=== PATIENT | male | born 1965 | race Caucasian/White ===

== ENCOUNTER 2018-04-01 00:03 | Emergency (ER) | payer OTHER ==
--- NOTE | 2018-04-01 00:56 | ED ---
Chest Pain HPI - General Chief Complaint: Chest Pain Stated Complaint: Chest Pain Time Seen by Provider: 04/01/18 00:42 Source: patient Mode of arrival: ambulatory Limitations: no limitations - History of Present Illness MD Complaint: chest pain Onset/Timin -: days(s) Onset: other (After coughing) Pain Location: left chest Pain Radiation: none Severity: moderate Quality: aching Consistency: constant Improves With: nothing Worsens With: palpation, movement, other (Coughing) Context: recent illness Other Symptoms: cough Treatments Prior to Arrival: none - Related Data Previous Rx's Medication Instructions Recorded Ibuprofen [Motrin] 600 mg PO Q8HR PRN #20 tab 04/01/18 Allergies Allergy/AdvReac Type Severity Reaction Status Date / Time No Known Allergies Allergy Verified 04/01/18 00:09 Review of Systems ROS Statement: Those systems with pertinent positive or pertinent negative responses have been documented in the HPI. ROS Other: All systems not noted in ROS Statement are negative. Constitutional: Denies: fever, chills Respiratory: Reports: cough. Denies: dyspnea, wheezes, hemoptysis Cardiovascular: Reports: as per HPI, chest pain. Denies: palpitations, dyspnea on exertion, orthopnea, edema, syncope Gastrointestinal: Denies: abdominal pain, vomiting, diarrhea Genitourinary: Denies: dysuria, hematuria Musculoskeletal: Denies: back pain Skin: Denies: rash Neurological: Denies: headache EKG Findings - EKG Results: EKG: interpreted by FELY, sinus rhythm (Rate approximate 93 b.p.m.), normal ST/T - Blocks, Boomer, Hypertrophy, ST Abn: AV and intraventricular conduction: left anterior fascicular block Past Medical History Past Medical History: Diabetes Mellitus, Hyperlipidemia Additional Past Medical History / Comment(s): Fatty liver disease, Chronic back pain, pulmonary sarcoidosis History of Any Multi-Drug Resistant Organisms: None Reported Past Surgical History: Hernia Repair Past Psychological History: Depression Smoking Status: Never smoker Past Alcohol Use History: Rare Past Drug Use History: None Reported General Exam Limitations: no limitations General appearance: alert, in no apparent distress, obese Head exam: Present: atraumatic, normocephalic Eye exam: Present: normal appearance. Absent: scleral icterus, conjunctival injection Respiratory exam: Present: normal lung sounds bilaterally, chest wall tenderness. Absent: respiratory distress, wheezes, rales, rhonchi, stridor, accessory muscle use, decreased breath sounds, prolonged expiratory Cardiovascular Exam: Present: regular rate, normal rhythm, normal heart sounds. Absent: systolic murmur, diastolic murmur, rubs, gallop GI/Abdominal exam: Present: soft. Absent: distended, tenderness, guarding, rebound, rigid, mass, hernia Extremities exam: Present: normal inspection, normal capillary refill. Absent: pedal edema, calf tenderness Back exam: Present: normal inspection. Absent: CVA tenderness (R), CVA tenderness (L) Neurological exam: Present: alert Skin exam: Present: warm, dry, intact, normal color. Absent: rash Course Vital Signs 04/01/18 04/01/18 00:04 01:10 Temperature 98.2 F Pulse Rate 103 H Respiratory 18 22 Rate Blood Pressure 122/72 O2 Sat by Pulse 97 Oximetry Disposition Clinical Impression: Chest wall pain Disposition: HOME SELF-CARE Condition: Good Instructions: Chest Pain (ED) Prescriptions: Ibuprofen [Motrin] 600 mg PO Q8HR PRN #20 tab PRN Reason: Pain Is patient prescribed a controlled substance at d/c from ED?: No Referrals: Edwin Chicas MD [Primary Care Provider] - 1-2 days
[2018-04-01 01:22] LABS: Basophils # (A) 0.1 k/uL (0-0.2); Basophils % (A) 1 %; Eosinophils # (A) 0.3 k/uL (0-0.7); Eosinophils % (A) 4 %; HCT 41.1 % (39.0-53.0); HGB 13.9 gm/dL (13.0-17.5); Lymphocytes # (A) 1.3 k/uL (1.0-4.8); Lymphocytes % (A) 18 %; MCH 30.2 pg (25.0-35.0); MCHC 33.9 g/dL (31.0-37.0); MCV 89.2 fL (80.0-100.0); Mean Platelet Volume 7.9; Monocytes # (A) 0.6 k/uL (0-1.0); Monocytes % (A) 9 %; Neutrophils # (A) 4.7 k/uL (1.3-7.7); Neutrophils % (A) 66 %; Platelet Count 192 k/uL (150-450); RBC 4.61 m/uL (4.30-5.90); RDW 13.6 % (11.5-15.5); WBC 7.2 k/uL (3.8-10.6)
--- NOTE | 2018-04-01 01:26 | XR ---
EXAMINATION TYPE: XR chest 1V portable DATE OF EXAM: 04/01/2018 COMPARISON: NONE HISTORY: Chest pain TECHNIQUE: Single frontal view of the chest is obtained. FINDINGS: Heart and mediastinum are normal. Lungs are clear. Diaphragm is normal. There are chest le ads. Bony thorax appears normal. IMPRESSION: Normal chest
[2018-04-01 01:30] LABS: Partial Thromboplastin Time 22.3 sec (22.0-30.0)
[2018-04-01 01:48] LABS: ALT 26 U/L (21-72); AST 19 U/L (17-59); Albumin 3.9 g/dL (3.5-5.0); Alkaline Phosphatase 95 U/L (38-126); Anion Gap 10 mmol/L; Blood Urea Nitrogen 22 mg/dL (9-20); Calcium 9.7 mg/dL (8.4-10.2); Carbon Dioxide 27 mmol/L (22-30); Chloride 98 mmol/L (98-107); Glucose 329 mg/dL (74-99); Magnesium 1.6 mg/dL (1.6-2.3); Potassium 4.4 mmol/L (3.5-5.1); Sodium 135 mmol/L (137-145); Total Bilirubin 0.7 mg/dL (0.2-1.3); Total Protein 6.9 g/dL (6.3-8.2)
[2018-04-01 02:01] LABS: Creatine Kinase MB 2.4 ng/mL (0.0-2.4); Troponin I 0.021 ng/mL (0.000-0.034)
[2018-04-01] MEDS ORDERED: MORPHINE SULFATE 4 MG/ML SYRINGE IVP STA (02:18)
[2018-04-01 02:51] VITALS: BP 135/84; PULSE 93; RESP 20; TEMP 98.1
== END 2018-04-01 02:53 | disposition home or self-care (01) ==
LOC: EC 00:03
DX: R07.89 Other chest pain (principal); R05 Cough
CPT/HCPCS: 36415; 93005; 80053; 82550; 82553; 83735; 84484; 85025; 85610; 85730; 71045; 99285; 96374; J2270

== ENCOUNTER → 2018-04-04 | Outpatient (CLI) | payer OTHER ==
[2018-04-04 08:22] LABS: Basophils # (A) 0.1 k/uL (0-0.2); Basophils % (A) 1 %; Eosinophils # (A) 0.3 k/uL (0-0.7); Eosinophils % (A) 7 %; HCT 40.1 % (39.0-53.0); HGB 13.6 gm/dL (13.0-17.5); Lymphocytes # (A) 0.8 k/uL (1.0-4.8); Lymphocytes % (A) 17 %; MCH 30.2 pg (25.0-35.0); MCV 88.8 fL (80.0-100.0); Mean Platelet Volume 6.9; Monocytes # (A) 0.4 k/uL (0-1.0); Monocytes % (A) 8 %; Neutrophils % (A) 64 %; Platelet Count 187 k/uL (150-450); RBC 4.51 m/uL (4.30-5.90); RDW 13.5 % (11.5-15.5); WBC 4.8 k/uL (3.8-10.6)
[2018-04-04 09:05] LABS: ALT 33 U/L (21-72); AST 19 U/L (17-59); Albumin 3.7 g/dL (3.5-5.0); Alkaline Phosphatase 98 U/L (38-126); Anion Gap 6 mmol/L; Blood Urea Nitrogen 21 mg/dL (9-20); Calcium 9.3 mg/dL (8.4-10.2); Carbon Dioxide 30 mmol/L (22-30); Chloride 101 mmol/L (98-107); Cholesterol 138 mg/dL (<200); Glucose 218 mg/dL (74-99); HDL Cholesterol 46 mg/dL (40-60); LDL Cholesterol,Calculated 70 mg/dL (0-99); Potassium 4.7 mmol/L (3.5-5.1); Sodium 137 mmol/L (137-145); Total Bilirubin 0.6 mg/dL (0.2-1.3); Total Protein 6.7 g/dL (6.3-8.2); Triglycerides 109 mg/dL (<150)
[2018-04-04 09:34] LABS: Prostate Specific Antigen 0.53 ng/mL (0.00-4.00)
[2018-04-04 11:22] LABS: Erythrocyte Sedimentation Rate 32 mm/hr (0-15)
[2018-04-04 17:07] LABS: Immunoglobulin E 9.91 IU/mL (0.00-114.00)
[2018-04-04 19:04] LABS: Hemoglobin A1C 9.9 % (4.0-6.0)
[2018-04-04 19:34] LABS: Cyclic Citrullinated Pep IgG POSITIVE (NEGATIVE)
== END ==
LOC: LABWHC1 07:07
PROVIDERS: ATTEND Family Medicine
DX: I10 Essential (primary) hypertension (principal); E11.9 Type 2 diabetes mellitus without complications; Z79.899 Other long term (current) drug therapy
CPT/HCPCS: 36415; 80053; 80061; 82043; 82570; 82785; 83036; 84153; 84443; 85025; 85652; 86038; 86200

== ENCOUNTER 2018-06-25 13:20 | Observation (INO) | payer OTHER ==
[2018-06-25 14:07] LABS: Basophils % (A) 1 %; Eosinophils # (A) 0.2 k/uL (0-0.7); Eosinophils % (A) 4 %; HCT 44.2 % (39.0-53.0); HGB 14.8 gm/dL (13.0-17.5); Lymphocytes # (A) 0.5 k/uL (1.0-4.8); Lymphocytes % (A) 12 %; MCH 30.4 pg (25.0-35.0); MCHC 33.6 g/dL (31.0-37.0); MCV 90.5 fL (80.0-100.0); Mean Platelet Volume 7.6; Monocytes # (A) 0.3 k/uL (0-1.0); Monocytes % (A) 7 %; Neutrophils # (A) 3.3 k/uL (1.3-7.7); Neutrophils % (A) 74 %; Platelet Count 173 k/uL (150-450); RBC 4.89 m/uL (4.30-5.90); RDW 13.4 % (11.5-15.5); WBC 4.5 k/uL (3.8-10.6)
--- NOTE | 2018-06-25 14:14 | XR ---
EXAMINATION TYPE: XR chest 2V DATE OF EXAM: 06/25/2018 HISTORY: Chest Pain. REFERENCE: Previous study dated 04/01/2018. FINDINGS: There is minimal atelectasis at the left lung base. Lungs otherwise clear. Pleural space ar e clear. The heart is not enlarged. IMPRESSION: MINIMAL ATELECTASIS, LEFT LUNG BASE.
[2018-06-25 14:18] LABS: ALT 38 U/L (21-72); AST 25 U/L (17-59); Albumin 3.9 g/dL (3.5-5.0); Alkaline Phosphatase 119 U/L (38-126); Anion Gap 10 mmol/L; Blood Urea Nitrogen 20 mg/dL (9-20); Calcium 9.2 mg/dL (8.4-10.2); Carbon Dioxide 29 mmol/L (22-30); Chloride 93 mmol/L (98-107); Lipase 198 U/L (23-300); Magnesium 1.6 mg/dL (1.6-2.3); Potassium 4.9 mmol/L (3.5-5.1); Sodium 132 mmol/L (137-145); Total Bilirubin 0.9 mg/dL (0.2-1.3); Total Protein 7.1 g/dL (6.3-8.2)
[2018-06-25 14:19] LABS: D-Dimer 0.31 mg/L FEU (<0.60); Partial Thromboplastin Time 22.7 sec (22.0-30.0); Prothrombin Time 10.3 sec (9.0-12.0)
[2018-06-25 14:30] LABS: Creatine Kinase 106 U/L (55-170)
[2018-06-25 14:41] LABS: Glucose 545 mg/dL (74-99)
[2018-06-25 14:44] LABS: Creatine Kinase MB 1.8 ng/mL (0.0-2.4); Troponin I <0.012 ng/mL (0.000-0.034)
[2018-06-25] MEDS ORDERED: INSULIN ASPART 100 UNIT/ML 1 ML 10 ML VIAL SQ ONE (14:51)
[2018-06-25] MEDS ORDERED: SODIUM CHLORIDE 0.9% 500 ML 500 ML IV ONE (14:54)
[2018-06-25] MEDS ORDERED: SODIUM CHLORIDE 0.9% 1,000 ML IV ONE (14:54)
[2018-06-25] MEDS ORDERED: NITROGLYCERIN SL TABS 0.4 MG TAB SUBLINGUAL PRN (14:55)
[2018-06-25] MEDS ORDERED: HEPARIN SODIUM,PORCINE 5,000 UNIT/ML 1 ML VIAL IV ONE ×2 (14:55→22:19)
[2018-06-25] MEDS ORDERED: ASPIRIN 81 MG PO STA (14:55)
--- NOTE | 2018-06-25 14:55 | ED ---
Chest Pain HPI - General Chief Complaint: Chest Pain Stated Complaint: Chest, sob Time Seen by Provider: 06/25/18 13:36 Source: patient, RN notes reviewed Mode of arrival: wheelchair Limitations: no limitations - History of Present Illness Initial Comments: This a 52-year-old male presents emergency Department chief complaint of chest pain. Patient states she's had some ongoing chest pain but worsened today. Patient states also felt short of breath. Patient states he has a history of sarcoidosis. Patient states that this was confirmed by biopsy. Patient states that he has a history of hyperlipidemia, diabetes uncontrolled. Patient denies any fever or chills no URI symptoms. Patient states the pain is primarily left- sided also right-sided. Patient denies any nausea vomiting. - Related Data Home Medications Medication Instructions Recorded Confirmed Atorvastatin [Lipitor] 20 mg PO HS 06/25/18 06/25/18 Gabapentin [Neurontin] 300 mg PO TID 06/25/18 06/25/18 Insulin NPH Hum/Reg Insulin Hm 120 unit SQ BID 06/25/18 06/25/18 [Novolin 70-30 100 Unit/ml Vial] Pioglitazone [Actos] 45 mg PO DAILY 06/25/18 06/25/18 Trazodone (Unknown Dose) 1 tab PO HS 06/25/18 06/25/18 metFORMIN HCL 1,000 mg PO BID 06/25/18 06/25/18 Allergies Allergy/AdvReac Type Severity Reaction Status Date / Time tramadol Allergy Unknown Verified 06/25/18 13:48 Review of Systems ROS Statement: Those systems with pertinent positive or pertinent negative responses have been documented in the HPI. ROS Other: All systems not noted in ROS Statement are negative. EKG Findings - EKG Comments: EKG Findings:: EKG performed at 13:30 normal sinus rhythm with a rate of 88 VT 154 QRS 84 QT/QTC 374/452 Past Medical History Past Medical History: Diabetes Mellitus, Hyperlipidemia Additional Past Medical History / Comment(s): Fatty liver disease, Chronic back pain, pulmonary sarcoidosis History of Any Multi-Drug Resistant Organisms: None Reported Past Surgical History: Hernia Repair Past Psychological History: Depression Smoking Status: Never smoker Past Alcohol Use History: None Reported Past Drug Use History: None Reported General Exam Limitations: no limitations General appearance: alert, in no apparent distress Head exam: Present: atraumatic, normocephalic, normal inspection ENT exam: Present: normal exam, normal oropharynx, mucous membranes moist Neck exam: Present: normal inspection. Absent: tenderness, meningismus, lymphadenopathy Respiratory exam: Present: normal lung sounds bilaterally. Absent: respiratory distress, wheezes, rales, rhonchi, stridor Cardiovascular Exam: Present: regular rate, normal rhythm, normal heart sounds. Absent: systolic murmur, diastolic murmur, rubs, gallop, clicks GI/Abdominal exam: Present: soft, normal bowel sounds. Absent: distended, tenderness, guarding, rebound, rigid Course Vital Signs 06/25/18 13:25 Temperature 97.5 F L Pulse Rate 97 Respiratory 18 Rate Blood Pressure 120/76 O2 Sat by Pulse 98 Oximetry Chest Pain MDM - MDM 52-year-old male presented for chest pain patient has no acute changes an EKG lab work does reveal hyperglycemia uncontrolled diabetes. Patient be admitted for cardiology evaluation and repeat troponins, heparin, stabilization of blood sugar. Disposition Clinical Impression: Chest pain, Hyperglycemia, Uncontrolled diabetes mellitus Disposition: ADMITTED IP TO THIS HOSP Condition: Fair Referrals: Edwin Chicas MD [Primary Care Provider] - 1-2 days
[2018-06-25] MEDS ORDERED: HEPARIN SOD,PORK IN 0.45% NACL 25,000 UNIT in 0.45% NACL 1 250ML.BAG IV SCH (15:00)
[2018-06-25 17:04] LABS: Glucose,Whole Blood 396 mg/dL (75-99)
[2018-06-25] MEDS: INSULIN ASPART 100 UNIT/ML 1 ML 10 ML VIAL SQ SCH ×2 (18:00→21:43)
[2018-06-25 20:21] LABS: Glucose,Whole Blood 305 mg/dL (75-99)
[2018-06-25] MEDS: INSULN ASP PRT/INSULIN ASPART 100 UNIT/ML 10 ML VIAL SQ SCH (20:44)
[2018-06-25] MEDS: GABAPENTIN 300 MG CAP PO SCH (20:44)
[2018-06-25] MEDS: metFORMIN 500 MG TAB PO SCH (20:44)
[2018-06-25] MEDS ORDERED: ATORVASTATIN 20 MG TAB PO SCH (21:00)
[2018-06-25 21:05] LABS: Creatine Kinase 107 U/L (55-170)
[2018-06-25 21:20] LABS: Creatine Kinase MB 1.7 ng/mL (0.0-2.4); Troponin I <0.012 ng/mL (0.000-0.034)
[2018-06-25 21:27] LABS: Glucose,Whole Blood 383 mg/dL (75-99)
[2018-06-25] MEDS ORDERED: traZODone HCL 100 MG TAB PO SCH (22:00)
[2018-06-26 01:43] LABS: Cholesterol 154 mg/dL (<200); Creatine Kinase 97 U/L (55-170); HDL Cholesterol 39 mg/dL (40-60); LDL Cholesterol,Calculated 70 mg/dL (0-99); Triglycerides 226 mg/dL (<150)
[2018-06-26 01:56] LABS: Creatine Kinase MB 1.4 ng/mL (0.0-2.4); Troponin I <0.012 ng/mL (0.000-0.034)
[2018-06-26 02:22] LABS: Glucose,Whole Blood 53 mg/dL (75-99)
[2018-06-26 02:56] LABS: Glucose,Whole Blood 68 mg/dL (75-99)
[2018-06-26 02:56] LABS: Glucose,Whole Blood 56 mg/dL (75-99)
[2018-06-26 03:03] LABS: Glucose,Whole Blood 101 mg/dL (75-99)
[2018-06-26] MEDS ORDERED: HEPARIN SODIUM,PORCINE 5,000 UNIT/ML 1 ML VIAL IV ONE (04:25)
[2018-06-26 06:44] LABS: Glucose,Whole Blood 240 mg/dL (75-99)
[2018-06-26 07:27] VITALS: RESP 18
[2018-06-26] MEDS ORDERED: ACETAMINOPHEN TAB 325 MG TAB PO PRN (08:26)
[2018-06-26] MEDS: INSULIN ASPART 100 UNIT/ML 1 ML 10 ML VIAL SQ SCH ×3 (08:54→17:00)
[2018-06-26] MEDS ORDERED: ASPIRIN 325 MG TAB PO SCH (09:00)
[2018-06-26] MEDS ORDERED: PIOGLITAZONE 45 MG TAB PO SCH (09:00)
[2018-06-26] MEDS ORDERED: REGADENOSON 0.4 MG/5 ML SYRINGE IV ONE (10:18)
[2018-06-26] MEDS ORDERED: CAFFEINE CITRATE 60 MG/3 ML VIAL IV PRN (10:18)
--- NOTE | 2018-06-26 11:37 | P.CRDCN ---
History of Present Illness History of present illness: This is a pleasant 52-year-old male past medical history significant for sarcoidosis, diabetes mellitus and dyslipidemia. He denies history of coronary artery disease, hypertension or arrhythmia. He does not follow with a building architect. He states he has recently moved here from [place] and has had a stress test approximately 4-5 years ago down there. We have been asked to see him in consultation for chest pain. He states he has a tight pain in the chest that circles around his entire anterior chest wall and then wraps around to his back at times. He has been having this pain for many years but it seems to be getting worse recently. He gets mildly short of breath with this discomfort as well. He denies dizziness, palpitations, nausea, vomiting or diaphoresis. He denies PND or orthopnea. He denies fever, chills or cough recently. EKG reveals sinus mechanism with left anterior fascicular block. No acute ST or T wave abnormalities noted. Chest x-ray negative for an acute cardiopulmonary process with evidence of minimal atelectasis at the left lung base. Laboratory data reviewed, hemoglobin 14.8, platelets 173, WBC 4.5, d-dimer 0.3, sodium 132, potassium 4.9, magnesium 1.6, creatinine 0.95, glucose on admission 545, cardiac enzymes negative 3, LDL 70, HDL 39, triglycerides 226. Current cardiac medications include atorvastatin 20 mg daily. At the time of my exam: CONSTITUTIONAL: Denies fever. Denies chills. EYES: Denies blurred vision. Denies vision changes. Denies eye pain. EARS, NOSE, MOUTH & THROAT: Denies headache. Denies sore throat. Denies ear pain. CARDIOVASCULAR: Denies chest pain. Denies shortness of breath. Denies orthopnea. Denies PND. Denies palpitations. RESPIRATORY: Denies cough. GASTROINTESTINAL: Denies abdominal pain. Denies diarrhea. Denies constipation. Denies nausea. Denies vomiting. MUSCULOSKELETAL: Denies myalgias. INTEGUMENTARY: Denies pruitis. Denies rash. NEUROLOGIC: Denies numbness. Denies tingling. Denies weakness. PSYCHIATRIC: Denies anxiety. Denies depression. ENDOCRINE: Denies fatigue. Denies weight change. Denies polydipsia. Denies polyurina. GENITOURINARY: Denies burning, hematuria or urgency with micturation. HEMATOLOGIC: Denies history of anemia. Denies bleeding. Blood pressure 122/70 heart rate 70 afebrile maintaining oxygen saturation on room air GENERAL: This is a 52-year-old male in no apparent distress at the time of my examination. Obese. HEENT: Head is atraumatic, normocephalic. Pupils are equal, round. Sclerae anicteric. Conjunctivae are clear. Mucous membranes of the mouth are moist. Neck is supple. There is no jugular venous distention. No carotid bruit is heard. LUNGS: Clear to auscultation no wheezes, rales or rhonchi. No chest wall tenderness is noted on palpation or with deep breathing. HEART: Regular rate and rhythm without murmurs, rubs or gallops. S1 and S2 heard. ABDOMEN: Soft, nontender. Bowel sounds are heard. No organomegaly noted. EXTREMITIES: No evidence of peripheral edema and no calf tenderness noted. VASCULAR: Radial and dorsalis pedis pulses palpated, no evidence of clubbing. NEUROLOGIC: Patient is awake, alert and oriented x3. ASSESSMENT Chest pain, atypical for angina. An acute coronary event has been ruled out with no EKG evidence of ischemia and negative cardiac enzymes. Diabetes mellitus, uncontrolled Dyslipidemia Hypertriglyceridemia History of sarcoidosis Obesity, BMI 37 PLAN An acute coronary event has been ruled out with no EKG evidence of ischemia and negative cardiac enzymes. Obtain 2D echocardiogram and doppler study to assess cardiac structure and function. Perform Lexiscan stress test to assess for reversible ischemia. Increase atorvastatin to 40 mg daily secondary to his history of diabetes. Will watch his triglycerides and may make some adjustments as an outpatient. If stress test is normal he can be discharged and follow up with Dr. Kate in 2 -3 weeks. Thank you kindly for this consultation. Nurse Practitioner note has been reviewed, I agree with a documented findings and plan of care. Patient was seen and examined. Past Medical History Past Medical History: Diabetes Mellitus, Hyperlipidemia Additional Past Medical History / Comment(s): Fatty liver disease, Chronic back pain, pulmonary sarcoidosis History of Any Multi-Drug Resistant Organisms: None Reported Past Surgical History: Hernia Repair Past Anesthesia/Blood Transfusion Reactions: No Reported Reaction Past Psychological History: Depression Smoking Status: Never smoker Past Alcohol Use History: None Reported Past Drug Use History: None Reported Medications and Allergies Home Medications Medication Instructions Recorded Confirmed Type Atorvastatin [Lipitor] 20 mg PO HS 06/25/18 06/25/18 History Gabapentin [Neurontin] 300 mg PO TID 06/25/18 06/25/18 History Insulin NPH Hum/Reg Insulin Hm 120 unit SQ BID 06/25/18 06/25/18 History [Novolin 70-30 100 Unit/ml Vial] Pioglitazone [Actos] 45 mg PO DAILY 06/25/18 06/25/18 History metFORMIN HCL 1,000 mg PO BID 06/25/18 06/25/18 History traZODone HCL 200 mg PO HS MDD 200 06/25/18 06/26/18 History Allergies Allergy/AdvReac Type Severity Reaction Status Date / Time tramadol Allergy Unknown Verified 06/25/18 13:48 Physical Exam Vitals: Vital Signs Temp Pulse Pulse Resp BP BP Pulse Ox 06/26/18 08:00 73 18 06/26/18 07:15 98.2 F 73 18 122/78 96 06/26/18 04:00 97.9 F 71 16 100/63 96 06/26/18 03:47 18 06/25/18 23:56 79 17 06/25/18 23:46 97.7 F 79 15 107/66 97 06/25/18 20:00 76 16 06/25/18 18:59 97.9 F 76 15 118/66 96 06/25/18 18:06 102/72 06/25/18 17:05 97.3 F L 93 18 142/87 97 06/25/18 16:59 97 F L 76 18 129/80 95 06/25/18 16:00 93 18 06/25/18 15:39 99 18 126/65 96 06/25/18 13:25 97.5 F L 97 18 120/76 98 Intake and Output 06/25/18 06/26/18 06/26/18 22:59 06:59 14:59 Intake Total 317.5 336.123 Balance 317.5 336.123 Intake: Intake, IV Titration 67.5 86.123 Amount Heparin Sod,Pork in 0.45% 67.5 86.123 NaCl 25,000 unit In 0.45 % NaCl 1 250ml.bag @ 7. 349 UNITS/KG/HR 10 mls/hr IV .Q24H [facility] Rx#: [id number] Oral 250 250 Other: Voiding Method Toilet Toilet Toilet # Voids 3 Weight 130.4 kg Results 06/25/18 13:44 06/25/18 13:44 Cardiac Enzymes 06/25/18 06/25/18 06/25/18 Range/Units 13:44 13:44 20:28 AST 25 (17-59) U/L CK-MB (CK-2) 1.8 1.7 (0.0-2.4) ng/mL Troponin I <0.012 <0.012 (0.000-0.034) ng/mL 06/26/18 Range/Units 01:09 AST (17-59) U/L CK-MB (CK-2) 1.4 (0.0-2.4) ng/mL Troponin I <0.012 (0.000-0.034) ng/mL Coagulation 06/25/18 06/25/18 06/26/18 Range/Units 13:44 20:28 03:16 PT 10.3 (9.0-12.0) sec APTT 22.7 28.7 38.1 H (22.0-30.0) sec Lipids 06/26/18 Range/Units 01:09 Triglycerides 226 H (<150) mg/dL Cholesterol 154 (<200) mg/dL HDL Cholesterol 39 L (40-60) mg/dL CBC 06/25/18 Range/Units 13:44 WBC 4.5 (3.8-10.6) k/uL RBC 4.89 (4.30-5.90) m/uL Hgb 14.8 (13.0-17.5) gm/dL Hct 44.2 (39.0-53.0) % Plt Count 173 (150-450) k/uL Comprehensive Metabolic Panel 06/25/18 Range/Units 13:44 Sodium 132 L (137-145) mmol/L Potassium 4.9 (3.5-5.1) mmol/L Chloride 93 L (98-107) mmol/L Carbon Dioxide 29 (22-30) mmol/L BUN 20 (9-20) mg/dL Creatinine 0.95 (0.66-1.25) mg/dL Glucose 545 H* (74-99) mg/dL Calcium 9.2 (8.4-10.2) mg/dL AST 25 (17-59) U/L ALT 38 (21-72) U/L Alkaline Phosphatase 119 (38-126) U/L Total Protein 7.1 (6.3-8.2) g/dL Albumin 3.9 (3.5-5.0) g/dL Current Medications Generic Name Dose Route Start Last Admin Trade Name Freq PRN Reason Stop Dose Admin Acetaminophen 650 mg 06/26/18 08:26 Tylenol Tab PO Q4HR PRN Fever and/ or Pain Aspirin 325 mg 06/26/18 09:00 Aspirin PO DAILY ELENITA Atorvastatin Calcium 40 mg 06/26/18 21:00 Lipitor PO HS ELENITA Gabapentin 300 mg 06/25/18 22:00 06/25/18 20:44 Neurontin PO 300 mg TID ELENITA Administration Insulin Aspart 0 unit 06/25/18 17:30 06/26/18 08:54 Novolog SQ 5 unit ACHS ELENITA Administration Protocol Insulin Aspart 120 unit 06/25/18 19:00 06/25/18 20:44 Novolog Mix 70-30 Vial SQ 120 unit AC-BID ELENITA Administration Metformin HCl 1,000 mg 06/25/18 21:00 06/25/18 20:44 Glucophage PO 1,000 mg BID ELENITA Administration Nitroglycerin 0.4 mg 06/25/18 14:55 06/25/18 18:06 Nitrostat SUBLINGUAL 0.4 mg Q5M PRN Administration Chest Pain Pioglitazone HCl 45 mg 06/26/18 09:00 Actos PO DAILY ELENITA Trazodone HCl 200 mg 06/25/18 22:00 06/25/18 22:21 Desyrel PO 200 mg HS ELENITA Administration Intake and Output 06/25/18 06/26/18 06/26/18 22:59 06:59 14:59 Intake Total 317.5 336.123 Balance 317.5 336.123 Intake: Intake, IV Titration 67.5 86.123 Amount Heparin Sod,Pork in 0.45% 67.5 86.123 NaCl 25,000 unit In 0.45 % NaCl 1 250ml.bag @ 7. 349 UNITS/KG/HR 10 mls/hr IV .Q24H [facility] Rx#: [id number] Oral 250 250 Other: Voiding Method Toilet Toilet Toilet # Voids 3 Weight 130.4 kg 06/25/18 13:44 06/25/18 13:44
[2018-06-26 12:52] LABS: Glucose,Whole Blood 245 mg/dL (75-99)
[2018-06-26] MEDS: metFORMIN 500 MG TAB PO SCH (12:55)
[2018-06-26] MEDS: GABAPENTIN 300 MG CAP PO SCH ×2 (12:55→16:12)
[2018-06-26] MEDS: INSULN ASP PRT/INSULIN ASPART 100 UNIT/ML 10 ML VIAL SQ SCH ×2 (12:59→17:00)
--- NOTE | 2018-06-26 13:06 | ECHOF ---
Referral Reason:cp, sob MEASUREMENTS -------- HEIGHT: 185.4 cm WEIGHT: 130.2 kg BP: 122/78 RVIDd: 3.6 cm (< 3.3) IVSd: 1.4 cm (0.6 - 1.1) LVIDd: 5.2 cm (3.9 - 5.3) LVPWd: 1.5 cm (0.6 - 1.1) IVSs: 1.8 cm LVIDs: 3.7 cm LVPWs: 1.7 cm LA Diam: 3.1 cm (2.7 - 3.8) LAESV Index (A-L): 24.21 ml/m Ao Diam: 4.1 cm (2.0 - 3.7) AV Cusp: 2.5 cm (1.5 - 2.6) MV EXCURSION: 20.282 mm (> 18.000) MV EF SLOPE: 42 mm/s (70 - 150) EPSS: 1.8 cm MV E Gonzalo: 0.48 m/s MV DecT: 320 ms MV A Gonzalo: 0.92 m/s MV E/A Ratio: 0.52 FINDINGS -------- Sinus rhythm. This was a technically difficult study with suboptimal views. The left ventricular size is normal. There is moderate concentric left ventricular hypertrophy. O verall left ventricular systolic function is mild-moderately impaired with, an EF between 40 - 45 %. The right ventricle is mildly enlarged. Normal LA size by volume 22+/-6 ml/m2. The right atrium is normal in size. 3 ml of Lumason was utilized for enhancement of images. The aortic valve is trileaflet and appears structurally normal. Mild mitral annular calcification present. Mild mitral regurgitation is present. The tricuspid valve appears structurally normal. The pulmonic valve was not well visualized. The aortic root is dilated measuring 4.1cm. IVC Not well visulized. There is no pericardial effusion. CONCLUSIONS -------- 1. Sinus rhythm. 2. This was a technically difficult study with suboptimal views. 3. The left ventricular size is normal. 4. There is moderate concentric left ventricular hypertrophy. 5. Overall left ventricular systolic function is mild-moderately impaired with, an EF between 40 - 45 %. 6. The right ventricle is mildly enlarged. 7. Normal LA size by volume 22+/-6 ml/m2. 8. The right atrium is normal in size. 9. 3 ml of Lumason was utilized for enhancement of images. 10. The aortic valve is trileaflet and appears structurally normal. 11. Mild mitral annular calcification present. 12. Mild mitral regurgitation is present. 13. The tricuspid valve appears structurally normal. 14. The pulmonic valve was not well visualized. 15. The aortic root is dilated measuring 4.1cm. 16. IVC Not well visulized. 17. There is no pericardial effusion. CUT OUT PRESS OPERATOR: Griselda Chandler RDCS
--- NOTE | 2018-06-26 13:15 | NM ---
EXAMINATION TYPE: NM stress lexiscan cardiolite DATE OF EXAM: 06/26/2018 COMPARISON: NONE HISTORY: 52-year-old male with chest pain, diabetes, hypercholesterolemia, family history TECHNIQUE: After the intravenous administration of 9.77 mCi Tc 99m Sestamibi - Cardiolite resting SP ECT images acquired 65 minutes post injection. The patient received 0.4mg Lexiscan, 26.3 mCi Tc 99m Sestamibi - Stress images obtained [address] injection FINDINGS: Review of stress and rest SPECT images demonstrates fixed perfusion abnormality along the basal anter oseptal wall which enlarges to encompass the mid anteroseptal wall on stress. Fixed perfusion defect along the inferior apical wall. Polar map suggests some reversibility along the mid to apical lateral wall. Gated analysis shows some apparent dyskinesia along the anterior wall. Estimated left ventricu lar ejection fraction of 23 %. TID is calculated at 1.19 which is borderline elevated. IMPRESSION: 1. 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 Suspect old infarct along the inferior apical wall. Polar maps also suggest another area of reversibility along the mid to apical lateral wall. 2. Given these findings along with apparent left ventricular chamber enlargement and estimated LVEF o f 23%, correlate for possible ischemic cardiomyopathy. Further clinical workup and evaluation recomme nded.
--- NOTE | 2018-06-26 13:28 | EST ---
EXERCISE STRESS DATE OF SERVICE: 06/26/2018 AGE: 52 SEX: Male HT: 6'1" WT: 300 PROTOCOL: Lexiscan Cardiolite STAGE: DURATION OF EXERCISE: HEART RATE REST: 95 BLOOD PRESSURE REST: 121/70 MAXIMUM HEART RATE ACHIEVED: 101 MAXIMUM BLOOD PRESSURE: 99/65 85% MPHR: 142 100% MPHR: 167 METS: INDICATIONS: Chest pain. CLINICAL INFORMATION: Lexiscan nuclear study was performed peak heart rate of 101, was achieved. Maximum blood pressure of 99/65 mmHg was noted. The resting EKG shows normal sinus rhythm with normal NJ interval and QRS duration and normal ST-T waves. No ST-segment depression suggestive of ischemia is noted. The results of the nuclear study will follow. MMCANDACEL / IJN: [id number] /
[2018-06-26 13:32] VITALS: TEMP 97.8
[2018-06-26 15:58] VITALS: BP 113/68; PULSE 90
[2018-06-26 16:29] LABS: Glucose,Whole Blood 190 mg/dL (75-99)
[2018-06-26] MEDS ORDERED: ATORVASTATIN 40 MG TAB PO SCH (21:00)
== END 2018-06-26 17:30 | disposition home or self-care (01) ==
LOC: EC 13:20 → 1SOBS 15:38
PROVIDERS: ADMIT Family Medicine; ATTEND Family Medicine
DX: R07.89 Other chest pain (principal); R06.02 Shortness of breath; D86.9 Sarcoidosis, unspecified; E78.5 Hyperlipidemia, unspecified; E78.1 Pure hyperglyceridemia; G89.29 Other chronic pain; M54.9 Dorsalgia, unspecified; D86.0 Sarcoidosis of lung; K76.0 Fatty (change of) liver, not elsewhere classified; E11.65 Type 2 diabetes mellitus with hyperglycemia; F32.9 Major depressive disorder, single episode, unspecified; Z79.84 Long term (current) use of oral hypoglycemic drugs; Z79.899 Other long term (current) drug therapy; Z79.4 Long term (current) use of insulin; Z88.5 Allergy status to narcotic agent; E66.9 Obesity, unspecified; Z68.37 Body mass index [BMI] 37.0-37.9, adult
CPT/HCPCS: 96366 ×3; 96376 ×3; 96365; 99285; 36415; 93005; 93017; 93306; 85379; 83880; 80061; 80053; 82550 ×2; 82553 ×2; 82009; 83690; 83735; 84484 ×2; 85025; 85610; 85730 ×2; 71046; 78452; G0378 ×2; A9500; J1644 ×3; J2785; Q9950

== ENCOUNTER → 2018-09-01 | Outpatient (CLI) | payer OTHER ==
[2018-09-01 14:35] LABS: HCT 41.9 % (39.0-53.0); MCH 30.2 pg (25.0-35.0); MCHC 33.5 g/dL (31.0-37.0); Mean Platelet Volume 6.5; Platelet Count 199 k/uL (150-450); RBC 4.65 m/uL (4.30-5.90); RDW 13.6 % (11.5-15.5); WBC 6.4 k/uL (3.8-10.6)
[2018-09-01 14:43] LABS: Anion Gap 14 mmol/L; Blood Urea Nitrogen 25 mg/dL (9-20); Carbon Dioxide 24 mmol/L (22-30); Chloride 92 mmol/L (98-107); Potassium 5.2 mmol/L (3.5-5.1); Sodium 130 mmol/L (137-145)
== END | disposition home or self-care (01) ==
LOC: LABPAT 13:49
PROVIDERS: ATTEND Internal Medicine Cardiovascular Disease
DX: Z01.812 Encounter for preprocedural laboratory examination (principal); E78.2 Mixed hyperlipidemia; I20.9 Angina pectoris, unspecified
CPT/HCPCS: 36415; 80051; 82565; 84520; 85027

== ENCOUNTER 2018-09-05 11:15 | Day surgery (SDC) | payer OTHER ==
[2018-08-31 09:08] VITALS: BMI 39.5
[~2018-09-05 11:15] MED LIST: ALPRAZolam 0.25 MG TAB PO PRN; ALPRAZolam 0.5 MG TAB PO PRN; ASPIRIN 325 MG TAB PO STA; ATORVASTATIN 80 MG TAB PO STA; NITROGLYCERIN SL TABS 0.4 MG TAB SUBLINGUAL PRN; SODIUM CHLORIDE 0.9% 1,000 ML in EMPTY BAG 1 BAG IV ONE
[2018-09-05 11:59] VITALS: RESP 16; TEMP 97.8
[2018-09-05] MEDS: INSULIN ASPART (NovoLOG) 100 UNIT/ML VIAL SQ SCH ×2 (12:04→17:35)
[2018-09-05 12:12] LABS: Glucose,Whole Blood 385 mg/dL (75-99)
[2018-09-05] MEDS ORDERED: fentaNYL (PF) 50 MCG/ML 2 ML AMP IV ONE (12:25)
[2018-09-05] MEDS ORDERED: MIDAZOLAM 2 MG/2 ML VIAL IV ONE (12:25)
[2018-09-05] MEDS ORDERED: LIDOCAINE 1% INJ 10MG/ML (20 ML MDV) SQ ONE (12:27)
[2018-09-05] MEDS ORDERED: IOPAMIDOL-370 150ML BTL INJ ONE (12:45)
[2018-09-05] MEDS ORDERED: SODIUM CHLORIDE 0.9% 1,000 ML IV SCH (13:05)
--- NOTE | 2018-09-05 13:11 | CC ---
CARDIAC CATHETERIZATION REPORT Mr. Kiser has a history of diabetes, sarcoidosis with intermittent exertional back pain. Patient's stress test was abnormal. In view of that, the patient was recommended to have a cardiac catheterization for definitive diagnosis. PROCEDURE: The right groin was prepped and draped in the usual manner and the skin was infiltrated with 2% Xylocaine. The right femoral artery was entered under the ultrasound guidance and micropuncture needle. The right femoral artery was entered using Seldinger technique. A #6-Palestinian sheath was placed in. Selective coronary angiography was then performed in multiple projections and the left ventricular pressures were obtained. Patient tolerated the procedure well. Moderate sedation was used. Total sedation time was 22 minutes. HEMODYNAMICS: Left ventricular end-diastolic pressure is 8-12 mmHg prior to angiography. No gradient is noted across the aortic valve. SELECTIVE CORONARY ANGIOGRAPHY: Left main coronary artery is normal and patent. The LAD is a good caliber blood vessel and gives rise to a high of diagonal branch. LAD and its branches are normal. Circumflex coronary artery is a normal caliber blood vessel and gives rise to a high obtuse marginal branch. Circumflex coronary artery and its branches are normal. Right coronary artery is dominant distribution and gives rise to the posterior descending artery. Right coronary artery and its branches are normal. RECOMMENDATIONS: Continue medical treatment and risk factor modification. MMODL / IJN: [id number] /
[2018-09-05] MEDS ORDERED: INSULIN NPH 300 UNIT/3 ML VIAL SQ ONE (13:43)
[2018-09-05] MEDS ORDERED: RX INFO: IV CONTRAST WAS GIVEN 1 EACH MISC MISCELLANE PRN (14:39)
[2018-09-05 16:34] LABS: Glucose,Whole Blood 330 mg/dL (75-99)
[2018-09-05] MEDS ORDERED: INSULN ASP PRT/INSULIN ASPART 100 UNIT/ML 10 ML VIAL SQ ONE (16:45)
[2018-09-05 17:05] VITALS: BP 112/63; PULSE 82
== END 2018-09-05 17:59 | disposition home or self-care (01) ==
LOC: CATHCVL 11:15
PROVIDERS: ATTEND Internal Medicine Cardiovascular Disease
DX: R94.39 Abnormal result of other cardiovascular function study (principal); R07.89 Other chest pain; E11.9 Type 2 diabetes mellitus without complications; Z82.49 Family history of ischemic heart disease and other diseases of the circulatory system; Z79.4 Long term (current) use of insulin; Z79.899 Other long term (current) drug therapy; Z88.5 Allergy status to narcotic agent
CPT/HCPCS: 93458; C1760; C1894; C1769 ×2; J2250; J2001; J3010; Q9967

== ENCOUNTER 2018-09-22 12:09 | Inpatient (IN) | payer OTHER ==
[2018-09-22 13:42] LABS: Glucose,Whole Blood 407 mg/dL (75-99)
[2018-09-22] MEDS ORDERED: ALBUTEROL NEBULIZED 2.5 MG/3 ML INHALATION PRN (13:59)
[2018-09-22] MEDS: NON-FORMULARY DRUG (Nateglinide 120 MG) PO SCH ×2 (14:35→22:03)
[2018-09-22] MEDS: GABAPENTIN 300 MG CAP PO SCH ×2 (14:36→21:51)
[2018-09-22] MEDS: metFORMIN 500 MG TAB PO SCH (14:36)
[2018-09-22] MEDS: INSULIN ASPART (NovoLOG) 100 UNIT/ML VIAL SQ SCH ×3 (14:36→21:55)
[2018-09-22] MEDS: SODIUM CHLORIDE 0.9% 1,000 ML IV SCH (15:16)
[2018-09-22 15:18] LABS: ALT 35 U/L (21-72); AST 22 U/L (17-59); African American GFR (CKD) >90 (>60 ml/min/1.73 sqM); Albumin 4.1 g/dL (3.5-5.0); Alkaline Phosphatase 104 U/L (38-126); Anion Gap 9 mmol/L; Blood Urea Nitrogen 32 mg/dL (9-20); Calcium 9.4 mg/dL (8.4-10.2); Carbon Dioxide 27 mmol/L (22-30); Chloride 98 mmol/L (98-107); Glucose 333 mg/dL (74-99); Potassium 4.6 mmol/L (3.5-5.1); Sodium 134 mmol/L (137-145); Total Bilirubin 0.7 mg/dL (0.2-1.3)
[2018-09-22 15:49] LABS: Basophils # (A) 0.1 k/uL (0-0.2); Basophils % (A) 1 %; Eosinophils # (A) 0.3 k/uL (0-0.7); Eosinophils % (A) 5 %; HCT 42.7 % (39.0-53.0); HGB 13.6 gm/dL (13.0-17.5); Lymphocytes # (A) 0.8 k/uL (1.0-4.8); Lymphocytes % (A) 14 %; MCH 28.7 pg (25.0-35.0); MCHC 31.9 g/dL (31.0-37.0); Mean Platelet Volume 7.2; Monocytes # (A) 0.5 k/uL (0-1.0); Monocytes % (A) 8 %; Neutrophils # (A) 4.3 k/uL (1.3-7.7); Neutrophils % (A) 71 %; Platelet Count 192 k/uL (150-450); RBC 4.75 m/uL (4.30-5.90); RDW 13.6 % (11.5-15.5)
[2018-09-22 17:03] LABS: Glucose,Whole Blood 245 mg/dL (75-99)
[2018-09-22] MEDS: Acetaminophen-Codeine 300-30mg TAB PO PRN (17:22)
[2018-09-22 20:15] LABS: Glucose,Whole Blood 181 mg/dL (75-99)
[2018-09-22] MEDS: ATORVASTATIN 20 MG TAB PO SCH (21:50)
[2018-09-22] MEDS: traZODone HCL 50 MG TAB PO SCH (21:50)
[2018-09-22] MEDS: ARIPiprazole 15 MG TAB PO SCH (22:03)
[2018-09-22] MEDS: DULoxetine HCL 30 MG CAPSULE.DR PO SCH (22:03)
[2018-09-23 02:08] LABS: Glucose,Whole Blood 197 mg/dL (75-99)
[2018-09-23] MEDS: INSULIN ASPART (NovoLOG) 100 UNIT/ML VIAL SQ SCH ×7 (02:22→21:21)
[2018-09-23] MEDS: Acetaminophen-Codeine 300-30mg TAB PO PRN ×4 (02:23→22:22)
[2018-09-23] MEDS: SODIUM CHLORIDE 0.9% 1,000 ML IV SCH ×3 (05:29→23:57)
[2018-09-23 07:19] LABS: Glucose,Whole Blood 331 mg/dL (75-99)
[2018-09-23] MEDS: metFORMIN 500 MG TAB PO SCH ×2 (07:46→18:01)
[2018-09-23] MEDS: GABAPENTIN 300 MG CAP PO SCH ×3 (07:46→21:21)
[2018-09-23] MEDS: NON-FORMULARY DRUG (Nateglinide 120 MG) PO SCH ×3 (09:49→21:29)
[2018-09-23 10:43] VITALS: BMI 38.1
[2018-09-23 10:55] LABS: Glucose,Whole Blood 337 mg/dL (75-99)
[2018-09-23 12:11] LABS: Glucose,Whole Blood 379 mg/dL (75-99)
[2018-09-23] MEDS: INSULIN DETEMIR (LEVEMIR) 100 UNIT/ML SYR SQ SCH (12:11)
[2018-09-23 17:14] LABS: Glucose,Whole Blood 321 mg/dL (75-99)
--- NOTE | 2018-09-23 20:20 | PN ---
PROGRESS NOTE SUBJECTIVE: 52-year-old white male, uncontrolled diabetes mellitus. His insulin will be increased today to 5 units plus scale and Lantus 20 units q.h.s. as well as metformin. Cardiovascular S1-S2. Lungs clear. GI soft. Musculoskeletal: Positive straight leg raising test. ASSESSMENT: 1. Uncontrolled diabetes mellitus. 2. Sciatica. Adjust medications. Discharge home in the morning on current medications as mentioned above. MMODL / IJN: [id number] /
[2018-09-23 21:10] LABS: Glucose,Whole Blood 287 mg/dL (75-99)
[2018-09-23] MEDS: ATORVASTATIN 20 MG TAB PO SCH (21:20)
[2018-09-23] MEDS: traZODone HCL 50 MG TAB PO SCH (21:20)
[2018-09-23] MEDS: DULoxetine HCL 30 MG CAPSULE.DR PO SCH (21:20)
[2018-09-23] MEDS: ARIPiprazole 15 MG TAB PO SCH (21:20)
[2018-09-24 02:08] LABS: Glucose,Whole Blood 166 mg/dL (75-99)
[2018-09-24] MEDS: INSULIN ASPART (NovoLOG) 100 UNIT/ML VIAL SQ SCH ×8 (02:21→21:58)
[2018-09-24 07:22] LABS: Glucose,Whole Blood 249 mg/dL (75-99)
[2018-09-24] MEDS: INSULIN DETEMIR (LEVEMIR) 100 UNIT/ML SYR SQ SCH (08:34)
[2018-09-24] MEDS: metFORMIN 500 MG TAB PO SCH ×2 (08:35→17:41)
[2018-09-24] MEDS: GABAPENTIN 300 MG CAP PO SCH ×3 (08:35→21:58)
[2018-09-24] MEDS: Acetaminophen-Codeine 300-30mg TAB PO PRN ×3 (08:38→22:06)
[2018-09-24 11:55] LABS: Glucose,Whole Blood 247 mg/dL (75-99)
[2018-09-24] MEDS: NON-FORMULARY DRUG (Nateglinide 120 MG) PO SCH ×3 (12:05→22:05)
[2018-09-24 16:58] LABS: Glucose,Whole Blood 254 mg/dL (75-99)
[2018-09-24 20:19] LABS: Glucose,Whole Blood 304 mg/dL (75-99)
[2018-09-24] MEDS: DULoxetine HCL 30 MG CAPSULE.DR PO SCH (21:58)
[2018-09-24] MEDS: ARIPiprazole 15 MG TAB PO SCH (21:58)
[2018-09-24] MEDS: traZODone HCL 50 MG TAB PO SCH (21:58)
[2018-09-24] MEDS: ATORVASTATIN 20 MG TAB PO SCH (21:58)
--- NOTE | 2018-09-24 22:29 | P.PN ---
Subjective Progress Note Date: 09/24/18 Principal diagnosis: Uncontrolled diabetes mellitus, COPD, mood disorder depression, dyslipidemia, chronic neuropathy, obesity 09/24/2018, patient seen eval reexamined during the rounds clinically patient has been doing relatively better pain in the leg that was noted previously has improved significantly, patient sugars however is still running on the higher side status check was over 300 insulin dose is being adjusted, pain is relatively better under control now, patient seen eval reexamined while covering for Dr. Edwin Chicas Objective - Vital Signs Vital signs: Vital Signs Temp 97.7 F 09/24/18 19:41 Pulse 82 09/24/18 19:41 Resp 16 09/24/18 19:59 BP 136/77 09/24/18 19:41 Pulse Ox 96 09/24/18 19:41 Intake & Output 09/24/18 09/24/18 09/25/18 06:59 18:59 06:59 Intake Total 922 Balance 922 Intake: Intake, IV Titration 0 Amount Sodium Chloride 0.9% 1, 0 000 ml @ 75 mls/hr IV . [id number] ELENITA Rx#:[id number] Oral 922 Other: # Voids 2 1 - Constitutional General appearance: Present: disheveled, morbidly obese, no acute distress - EENT Eyes: Present: EOMI, PERRLA, poor dentition Ears: bilateral: normal - Neck Carotids: bilateral: upstroke normal Thyroid: bilateral: normal size - Respiratory Respiratory: bilateral: CTA - Cardiovascular Rhythm: regular Heart sounds: normal: S1, S2 - Gastrointestinal General gastrointestinal: Present: distended, hyperactive bowel sounds, soft - Integumentary Integumentary: Present: normal, normal turgor - Musculoskeletal Musculoskeletal: Present: gait normal, strength equal bilaterally - Psychiatric Psychiatric: Present: A&O x's 3, appropriate affect, intact judgment & insight - Labs CBC & Chem 7: 09/22/18 14:06 09/22/18 14:06 Labs: Abnormal Lab Results - Last 24 Hours (Table) 09/24/18 09/24/18 09/24/18 Range/Units 02:07 07:21 11:53 POC Glucose (mg/dL) 166 H 249 H 247 H (75-99) mg/dL 09/24/18 09/24/18 Range/Units 16:57 20:17 POC Glucose (mg/dL) 254 H 304 H (75-99) mg/dL Assessment and Plan Assessment: Uncontrolled diabetes Dyslipidemia Hypertension Morbid obesity Chronic pain syndrome Plan: Gentle rehydration Insulin hypoglycemic agent adjustment Further recommendations pending plan of care as per clinical response of the patient
[2018-09-24] MEDS: SODIUM CHLORIDE 0.9% 1,000 ML IV SCH (22:32)
[2018-09-25 02:05] LABS: Glucose,Whole Blood 236 mg/dL (75-99)
[2018-09-25] MEDS: INSULIN ASPART (NovoLOG) 100 UNIT/ML VIAL SQ SCH ×5 (02:18→13:08)
[2018-09-25] MEDS: Acetaminophen-Codeine 300-30mg TAB PO PRN ×2 (05:13→11:09)
[2018-09-25] MEDS: GABAPENTIN 300 MG CAP PO SCH (07:44)
[2018-09-25] MEDS: metFORMIN 500 MG TAB PO SCH (07:44)
[2018-09-25] MEDS: SODIUM CHLORIDE 0.9% 1,000 ML IV SCH (10:30)
[2018-09-25] MEDS: NON-FORMULARY DRUG (Nateglinide 120 MG) PO SCH (10:30)
[2018-09-25 11:50] LABS: Glucose,Whole Blood 227 mg/dL (75-99)
[2018-09-25 12:26] VITALS: BP 128/68; PULSE 68; RESP 14; TEMP 98.5
--- NOTE | 2018-09-25 13:55 | HP ---
HISTORY AND PHYSICAL DATE OF SERVICE: 09/22/2017 CHIEF COMPLAINT: White male who was admitted to the hospital with uncontrolled diabetes mellitus, 400 to 500 glucose levels, despite insulin at home. He was admitted for uncontrolled diabetes mellitus and dizziness lightheadedness. He has a history of sarcoidosis, chronic pain and depression. MEDICATIONS: At home include Lipitor 20 daily, Cymbalta 30 daily, gabapentin 600 t.i.d., metformin 1000 b.i.d., trazodone 150 q.h.s., updraft treatments q.i.d. with albuterol and Abilify 30 q.h.s. REVIEW OF SYSTEMS: Fourteen point review of systems negative except for mentioned, dizziness. PHYSICAL EXAM: Vital signs stable. Afebrile. CARDIOVASCULAR: S1, S2. LUNGS: Clear. GI: Soft. INTEGUMENT: Dry mucous membranes. HEMATOLOGY: Negative Homans. PSYCH: Flat mood and affect. ASSESSMENT: Uncontrolled diabetes mellitus, dehydration, depression, bipolar, dyslipidemia. Accu- Chek protocol. Start him on long-acting Lantus and Accu-Chek a.c. and at bedtime. Follow up in next 24 to 48 hours. MMODL / IJN: [id number] /
--- NOTE | 2018-09-25 14:49 | DS ---
DISCHARGE SUMMARY ASSESSMENT: Uncontrolled diabetes mellitus, sarcoidosis. DISCHARGE MEDICATIONS: 1. Metformin 1000 mg b.i.d. 2. Lantus 25 units q.h.s. 3. Humalog 5 units plus scale. 4. Accu-Chek t.i.d., a.c. and at bedtime. 5. Continue all other current home medications. CONDITION: Stable. PROGNOSIS: Guarded. Ambulate as tolerated. HOSPITAL COURSE OF EVENTS: The white male was admitted with uncontrolled diabetes mellitus. He was adjusted to insulin and diabetic education was done. He will follow up in the office tomorrow for more education as he is kind of noncompliant. MMODL / IJN: [id number] /
--- NOTE | 2018-09-27 09:51 | CDI ---
Documentation Clarification Form Date: 09/27/2018 From: Celia Quirino Vickie Angelica, Corporate Security Officer Hours-8:30 am & 5 pm M-F Admit Date: 09/22/2018 12:55:00 PM Patient Name: Gary Kiser Visit Number: [id number] Discharge Date: 09/25/2018 2:26:00 PM ATTENTION: The Clinical Documentation Specialists (CDI) and [facility] Coding Staff appreciate your assistance in clarifying documentation. Please respond to the clarification below the line at the bottom and electronically sign. The CDI & [facility] Coding staff will review the response and follow-up if needed. Please note: Queries are made part of the Legal Health Record. If you have any questions, please contact the author of this message via ITS. Dr. Edwin Chicas The patient has diabetes Type II uncontrolled, as indicated in H&P, DS and progress note. POC glucose: 407, 245, 181, 197, 331, 337, 379, 321, 287, 166, 249, 247, 254, 304, 236, 227 Glucose: 333 Treatment: Cover with adult NovoLOG sliding scale Per [facility] 2016 - query the provider for clarification whether the patient has hyperglycemia or hypoglycemia so that the appropriate code may be reported - uncontrolled diabetes indicates that the patient's blood sugar is not at an acceptable level, because it is either too high or too low. In order to capture the severity of Illness and necessary documentation specificity, please clarify if Type 2 uncontrolled diabetes is: Hyperglycemia Hypoglycemia Other, please specify Unable to Determine Please continue to document in your progress notes and discharge summary in order to capture severity of illness and risk of mortality. Include clinical findings that support your diagnosis. MTDD
--- NOTE | 2018-10-02 12:02 | CDI ---
Documentation Clarification Form Date: 10/02/18 From: Celia Quirino Vickie Angelica, Dirt Bike Mechanic Hours-8:30 am & 5 pm M-F Admit Date: 09/22/2018 12:55:00 PM Patient Name: Gary Kiser Visit Number: [id number] Discharge Date: 09/25/2018 2:26:00 PM ATTENTION: The Clinical Documentation Specialists (CDI) and [facility] Coding Staff appreciate your assistance in clarifying documentation. Please respond to the clarification below the line at the bottom and electronically sign. The CDI & [facility] Coding staff will review the response and follow-up if needed. Please note: Queries are made part of the Legal Health Record. If you have any questions, please contact the author of this message via ITS. Dr. Edwin Chicas The patient has diabetes Type II uncontrolled, as indicated in H&P, DS and progress note. POC glucose: 407, 245, 181, 197, 331, 337, 379, 321, 287, 166, 249, 247, 254, 304, 236, 227 Glucose: 333 Treatment: Cover with adult NovoLOG sliding scale Per [facility] 2016 - query the provider for clarification whether the patient has hyperglycemia or hypoglycemia so that the appropriate code may be reported - uncontrolled diabetes indicates that the patient's blood sugar is not at an acceptable level, because it is either too high or too low. In order to capture the severity of Illness and necessary documentation specificity, please clarify if Type 2 uncontrolled diabetes is: Hyperglycemia Hypoglycemia Other, please specify Unable to Determine Please continue to document in your progress notes and discharge summary in order to capture severity of illness and risk of mortality. Include clinical findings that support your diagnosis. MTDD
--- NOTE | 2018-10-10 09:25 | CDI ---
Documentation Clarification Form Date: 10/10/18 From: Celia Quirino Vickie Angelica, Lease Administrator Hours-8:30 am & 5 pm M-F Admit Date: 09/22/2018 12:55:00 PM Patient Name: Gary Kiser Visit Number: [id number] Discharge Date: 09/25/2018 2:26:00 PM ATTENTION: The Clinical Documentation Specialists (CDI) and [facility] Coding Staff appreciate your assistance in clarifying documentation. Please respond to the clarification below the line at the bottom and electronically sign. The CDI & [facility] Coding staff will review the response and follow-up if needed. Please note: Queries are made part of the Legal Health Record. If you have any questions, please contact the author of this message via ITS. Dr. Edwin Chicas The patient has diabetes Type II uncontrolled, as indicated in H&P, DS and progress note. POC glucose: 407, 245, 181, 197, 331, 337, 379, 321, 287, 166, 249, 247, 254, 304, 236, 227 Glucose: 333 Treatment: Cover with adult NovoLOG sliding scale Per [facility] 2016 - query the provider for clarification whether the patient has hyperglycemia or hypoglycemia so that the appropriate code may be reported - uncontrolled diabetes indicates that the patient's blood sugar is not at an acceptable level, because it is either too high or too low. In order to capture the severity of Illness and necessary documentation specificity, please clarify if Type 2 uncontrolled diabetes is: Hyperglycemia Hypoglycemia Other, please specify Unable to Determine Please continue to document in your progress notes and discharge summary in order to capture severity of illness and risk of mortality. Include clinical findings that support your diagnosis. MTDD
--- NOTE | 2018-10-16 10:27 | CDI ---
Documentation Clarification Form Date: 10/16/18 From: Celia Quirino Vickie Angelica, Orthopedic Shoe Fitter Hours-8:30 am & 5 pm M-F Admit Date: 09/22/2018 12:55:00 PM Patient Name: Gary Kiser Visit Number: [id number] Discharge Date: 09/25/2018 2:26:00 PM ATTENTION: The Clinical Documentation Specialists (CDI) and [facility] Coding Staff appreciate your assistance in clarifying documentation. Please respond to the clarification below the line at the bottom and electronically sign. The CDI & [facility] Coding staff will review the response and follow-up if needed. Please note: Queries are made part of the Legal Health Record. If you have any questions, please contact the author of this message via ITS. Dr. Edwin Chicas The patient has diabetes Type II uncontrolled, as indicated in H&P, DS and progress note. POC glucose: 407, 245, 181, 197, 331, 337, 379, 321, 287, 166, 249, 247, 254, 304, 236, 227 Glucose: 333 Treatment: Cover with adult NovoLOG sliding scale Per [facility] 2016 - query the provider for clarification whether the patient has hyperglycemia or hypoglycemia so that the appropriate code may be reported - uncontrolled diabetes indicates that the patient's blood sugar is not at an acceptable level, because it is either too high or too low. In order to capture the severity of Illness and necessary documentation specificity, please clarify if Type 2 uncontrolled diabetes is: Hyperglycemia Hypoglycemia Other, please specify Unable to Determine Please continue to document in your progress notes and discharge summary in order to capture severity of illness and risk of mortality. Include clinical findings that support your diagnosis. MTDD
== END 2018-09-25 14:26 | disposition home or self-care (01) | DRG 639 ==
LOC: 4SSUR 12:55 → 4MS4W 09-25 08:11
PROVIDERS: ADMIT Family Medicine; ATTEND Family Medicine
DX: E11.9 Type 2 diabetes mellitus without complications (principal); E11.40 Type 2 diabetes mellitus with diabetic neuropathy, unspecified; E66.01 Morbid (severe) obesity due to excess calories; E86.0 Dehydration; J44.9 Chronic obstructive pulmonary disease, unspecified; M54.30 Sciatica, unspecified side; I10 Essential (primary) hypertension; G89.4 Chronic pain syndrome; E78.5 Hyperlipidemia, unspecified; D86.9 Sarcoidosis, unspecified; F32.9 Major depressive disorder, single episode, unspecified; Z68.38 Body mass index [BMI] 38.0-38.9, adult; Z79.4 Long term (current) use of insulin; Z79.899 Other long term (current) drug therapy; Z71.3 Dietary counseling and surveillance
CPT/HCPCS: 80053; 85025; 94640

== ENCOUNTER → 2018-11-27 | Outpatient (CLI) | payer OTHER ==
[2018-11-27 20:20] LABS: Hemoglobin A1C 12.3 % (4.0-6.0)
== END | disposition home or self-care (01) ==
LOC: LABWHC1 14:37
PROVIDERS: ATTEND Family Medicine
DX: E11.9 Type 2 diabetes mellitus without complications (principal)
CPT/HCPCS: 36415; 83036

== ENCOUNTER 2019-03-17 18:14 | Inpatient (IN) | payer OTHER ==
--- NOTE | 2019-03-17 19:20 | ED ---
General Adult HPI - General Chief complaint: Recheck/Abnormal Lab/Rx Stated complaint: hyperglycemia, pain, depression Time Seen by Provider: 03/17/19 18:42 Source: patient, RN notes reviewed Mode of arrival: wheelchair Limitations: no limitations - History of Present Illness Initial comments: Is a 53-year-old male with a history of depression and history of diabetes who states he hasn't taken his medication for some time he states his blood sugar was greater than [address] for a while. He also states he's got a history depression and chronic back pain with sciatica going on right leg from previous injury. He states his sugars high because of missed management him he just not been taking his medication he denies any suicidal thoughts or ideations. He states he has been having polyuria and polydipsia. He denies any fevers chills nausea vomiting or other symptoms at this time. - Related Data Home Medications Medication Instructions Recorded Confirmed Atorvastatin [Lipitor] 20 mg PO HS 06/25/18 09/22/18 metFORMIN HCL 1,000 mg PO BID 06/25/18 09/22/18 ARIPiprazole [Abilify] 30 mg PO HS 08/31/18 09/22/18 Albuterol Inhaler [Ventolin Hfa 1 - 2 puff INHALATION RT-Q6H PRN 08/31/18 09/22/18 Inhaler] DULoxetine HCL [Cymbalta] 30 mg PO HS 08/31/18 09/22/18 Gabapentin 600 mg PO TID 09/22/18 09/22/18 Nateglinide [Starlix] 120 mg PO TID 09/22/18 09/22/18 traZODone HCL 150 mg PO HS 09/22/18 09/22/18 Previous Rx's Medication Instructions Recorded INSULIN ASPART (NovoLOG) [NovoLOG 5 unit SQ AC-TID vial 09/25/18 (formulary)] Insulin Detemir (Levemir) [Levemir] 20 unit SQ DAILY syr 09/25/18 Allergies Allergy/AdvReac Type Severity Reaction Status Date / Time tramadol Allergy urine Verified 03/17/19 19:08 retention Review of Systems ROS Statement: Those systems with pertinent positive or pertinent negative responses have been documented in the HPI. ROS Other: All systems not noted in ROS Statement are negative. Past Medical History Past Medical History: Chest Pain / Angina, Diabetes Mellitus, Hyperlipidemia, Hypertension Additional Past Medical History / Comment(s): Fatty liver disease, Chronic back pain, pulmonary sarcoidosis History of Any Multi-Drug Resistant Organisms: None Reported Past Surgical History: Hernia Repair Past Anesthesia/Blood Transfusion Reactions: No Reported Reaction Past Psychological History: Depression Smoking Status: Never smoker Past Alcohol Use History: None Reported Past Drug Use History: None Reported - Past Family History Mother Family Medical History: Cancer Additional Family Medical History / Comment(s): breast Sister(s) Family Medical History: Cancer Additional Family Medical History / Comment(s): breast General Exam - General Exam Comments Initial Comments: This a well-developed well-nourished awake alert oriented 3 male Limitations: no limitations General appearance: alert, anxious Head exam: Present: atraumatic, normocephalic, normal inspection Eye exam: Present: normal appearance, PERRL, EOMI. Absent: scleral icterus, conjunctival injection, periorbital swelling ENT exam: Present: normal exam, mucous membranes moist Neck exam: Present: normal inspection. Absent: tenderness, meningismus, lymphadenopathy Respiratory exam: Present: normal lung sounds bilaterally. Absent: respiratory distress, wheezes, rales, rhonchi, stridor Cardiovascular Exam: Present: regular rate, normal rhythm, normal heart sounds. Absent: systolic murmur, diastolic murmur, rubs, gallop, clicks GI/Abdominal exam: Present: soft, normal bowel sounds. Absent: distended, tenderness, guarding, rebound, rigid Extremities exam: Present: normal inspection, full ROM, normal capillary refill. Absent: tenderness, pedal edema, joint swelling, calf tenderness Back exam: Present: normal inspection Neurological exam: Present: alert, oriented X3, CN II-XII intact Psychiatric exam: Present: depressed, flat affect. Absent: suicidal ideation Skin exam: Present: warm, dry, intact, normal color. Absent: rash Course Vital Signs 03/17/19 03/17/19 03/17/19 18:26 20:07 21:03 Temperature 97.8 F Pulse Rate 94 73 Respiratory 18 16 16 Rate Blood Pressure 106/66 133/73 O2 Sat by Pulse 99 98 97 Oximetry EKG Findings - EKG Results: EKG: interpreted by FELY, sinus rhythm (Sinus rhythm of 82 FL interval 148 QRS duration 80 QT since QTC 390/455 left exodeviation no acute ST-T wave changes) Medical Decision Making - Medical Decision Making I did discuss findings with patient and with Dr. Chicas the patient will be admitted for inpatient treatment of hyperglycemia /dehydration and depression - Lab Data Result diagrams: 03/17/19 19:10 03/17/19 19:10 Lab Results 03/17/19 03/17/19 03/17/19 Range/Units 19:10 19:10 19:10 WBC 4.8 (3.8-10.6) k/uL RBC 4.31 (4.30-5.90) m/uL Hgb 13.0 (13.0-17.5) gm/dL Hct 37.9 L (39.0-53.0) % MCV 88.0 (80.0-100.0) fL MCH 30.1 (25.0-35.0) pg MCHC 34.3 (31.0-37.0) g/dL RDW 15.4 (11.5-15.5) % Plt Count 169 (150-450) k/uL Neutrophils % 75 % Lymphocytes % 11 % Monocytes % 7 % Eosinophils % 3 % Basophils % 1 % Neutrophils # 3.6 (1.3-7.7) k/uL Lymphocytes # 0.5 L (1.0-4.8) k/uL Monocytes # 0.3 (0-1.0) k/uL Eosinophils # 0.2 (0-0.7) k/uL Basophils # 0.0 (0-0.2) k/uL Sodium 132 L (137-145) mmol/L Potassium 4.5 (3.5-5.1) mmol/L Chloride 96 L (98-107) mmol/L Carbon Dioxide 23 (22-30) mmol/L Anion Gap 13 mmol/L BUN 24 H (9-20) mg/dL Creatinine 0.85 (0.66-1.25) mg/dL Est GFR (CKD-EPI)AfAm >90 (>60 ml/min/1.73 sqM) Est GFR (CKD-EPI)NonAf >90 (>60 ml/min/1.73 sqM) Glucose 691 H* (74-99) mg/dL POC Glucose (mg/dL) (75-99) mg/dL POC Glu [employer] Curer ID Calcium 9.3 (8.4-10.2) mg/dL Magnesium 1.7 (1.6-2.3) mg/dL Total Bilirubin 0.6 (0.2-1.3) mg/dL AST 22 (17-59) U/L ALT 31 (21-72) U/L Alkaline Phosphatase 151 H (38-126) U/L Creatine Kinase 99 (55-170) U/L Troponin I 0.014 (0.000-0.034) ng/mL Total Protein 6.6 (6.3-8.2) g/dL Albumin 3.7 (3.5-5.0) g/dL Lipase 337 H (23-300) U/L Serum Alcohol <10 mg/dL Acetone, Qual Negative (Negative) 03/17/19 Range/Units 19:20 WBC (3.8-10.6) k/uL RBC (4.30-5.90) m/uL Hgb (13.0-17.5) gm/dL Hct (39.0-53.0) % MCV (80.0-100.0) fL MCH (25.0-35.0) pg MCHC (31.0-37.0) g/dL RDW (11.5-15.5) % Plt Count (150-450) k/uL Neutrophils % % Lymphocytes % % Monocytes % % Eosinophils % % Basophils % % Neutrophils # (1.3-7.7) k/uL Lymphocytes # (1.0-4.8) k/uL Monocytes # (0-1.0) k/uL Eosinophils # (0-0.7) k/uL Basophils # (0-0.2) k/uL Sodium (137-145) mmol/L Potassium (3.5-5.1) mmol/L Chloride (98-107) mmol/L Carbon Dioxide (22-30) mmol/L Anion Gap mmol/L BUN (9-20) mg/dL Creatinine (0.66-1.25) mg/dL Est GFR (CKD-EPI)AfAm (>60 ml/min/1.73 sqM) Est GFR (CKD-EPI)NonAf (>60 ml/min/1.73 sqM) Glucose (74-99) mg/dL POC Glucose (mg/dL) >600 H (75-99) mg/dL POC Glu [employer] Curer ID Kristina Siegel Calcium (8.4-10.2) mg/dL Magnesium (1.6-2.3) mg/dL Total Bilirubin (0.2-1.3) mg/dL AST (17-59) U/L ALT (21-72) U/L Alkaline Phosphatase (38-126) U/L Creatine Kinase (55-170) U/L Troponin I (0.000-0.034) ng/mL Total Protein (6.3-8.2) g/dL Albumin (3.5-5.0) g/dL Lipase (23-300) U/L Serum Alcohol mg/dL Acetone, Qual (Negative) Disposition Clinical Impression: Hyperglycemia, Dehydration, Depression, Anxiety Disposition: ADMITTED IP TO THIS HOSP Condition: Fair Referrals: Edwin Chicas MD [Primary Care Provider] - 1-2 days
[2019-03-17 19:30] LABS: Glucose,Whole Blood >600 mg/dL (75-99)
[2019-03-17 19:30] LABS: Basophils % (A) 1 %; Eosinophils # (A) 0.2 k/uL (0-0.7); Eosinophils % (A) 3 %; HCT 37.9 % (39.0-53.0); Lymphocytes # (A) 0.5 k/uL (1.0-4.8); Lymphocytes % (A) 11 %; MCH 30.1 pg (25.0-35.0); MCHC 34.3 g/dL (31.0-37.0); Mean Platelet Volume 8.3; Monocytes # (A) 0.3 k/uL (0-1.0); Monocytes % (A) 7 %; Neutrophils # (A) 3.6 k/uL (1.3-7.7); Neutrophils % (A) 75 %; Platelet Count 169 k/uL (150-450); RBC 4.31 m/uL (4.30-5.90); RDW 15.4 % (11.5-15.5); WBC 4.8 k/uL (3.8-10.6)
[2019-03-17 19:39] LABS: ALT 31 U/L (21-72); AST 22 U/L (17-59); African American GFR (CKD) >90 (>60 ml/min/1.73 sqM); Albumin 3.7 g/dL (3.5-5.0); Alcohol <10 mg/dL; Alkaline Phosphatase 151 U/L (38-126); Anion Gap 13 mmol/L; Blood Urea Nitrogen 24 mg/dL (9-20); Calcium 9.3 mg/dL (8.4-10.2); Carbon Dioxide 23 mmol/L (22-30); Chloride 96 mmol/L (98-107); Creatine Kinase 99 U/L (55-170); Magnesium 1.7 mg/dL (1.6-2.3); Non-African American GFR(CKD) >90 (>60 ml/min/1.73 sqM); Potassium 4.5 mmol/L (3.5-5.1); Sodium 132 mmol/L (137-145); Total Bilirubin 0.6 mg/dL (0.2-1.3); Total Protein 6.6 g/dL (6.3-8.2)
[2019-03-17] MEDS ORDERED: INSULIN REGULAR 100 UNIT/ML VIAL IV ONE ×2 (19:43→21:21)
[2019-03-17] MEDS ORDERED: SODIUM CHLORIDE 0.9% 1,000 ML IV STA ×2 (19:43)
[2019-03-17 20:02] LABS: Glucose 691 mg/dL (74-99)
--- NOTE | 2019-03-17 21:03 | XR ---
EXAMINATION TYPE: XR chest 2V DATE OF EXAM: 03/17/2019 COMPARISON: 06/25/2018 HISTORY: Back pain TECHNIQUE: Frontal and lateral views of the chest are obtained. FINDINGS: Heart and mediastinum are normal. Thoracic aorta is atheromatous. Lungs are clear of infil trate. There is minor spurring in the thoracic spine. There is no heart failure. IMPRESSION: No active cardiopulmonary disease. Normal heart. No change.
--- NOTE | 2019-03-17 21:04 | XR ---
EXAMINATION TYPE: XR KUB DATE OF EXAM: 03/17/2019 COMPARISON: NONE HISTORY: Back pain TECHNIQUE: 2 views upright FINDINGS: Bowel gas pattern is normal. There is no sign of intestinal obstruction or pneumoperitoneum . Fecal pattern is normal. There is no sign of a mass. There are no pathologic calcifications over th e kidneys. IMPRESSION: Nonacute abdomen.
[2019-03-17 21:08] LABS: Appearance,Urine Clear (Clear); Bilirubin,Urine Negative (Negative); Blood,Urine Negative (Negative); Color,Urine Light Yellow; Glucose,Urine (UA) 4+ (Negative); Ketones,Urine Negative (Negative); Leukocyte Esterase,Urine Negative (Negative); Nitrite,Urine Negative (Negative); PH, Urine 5.5 (5.0-8.0); Protein,Urine Negative (Negative); Specific Gravity,Urine 1.036 (1.001-1.035); Urobilinogen,Urine <2.0 mg/dL (<2.0)
[2019-03-17] MEDS ORDERED: NALOXONE 0.4 MG/ML 1 ML VIAL IV PRN (21:15)
[2019-03-17] MEDS ORDERED: ALBUTEROL NEBULIZED 2.5 MG/3 ML INHALATION PRN (21:18)
[2019-03-17 21:22] LABS: Amphetamine Screen,Urine Not Detected (NotDetected); Barbiturate Screen,Urine Not Detected (NotDetected); Benzodiazepines Screen,Urine Not Detected (NotDetected); Cocaine Screen,Urine Not Detected (NotDetected); Methadone Screen, Urine Not Detected (NotDetected); Opiate Screen,Urine Not Detected (NotDetected); Oxycodone Screen, Urine Not Detected (NotDetected); Phencyclidine Screen,Urine Not Detected (NotDetected); Tricyclic Antidepressant,Urine Not Detected (NotDetected); Urn Cannabinoid Scrn Not Detected (NotDetected)
[2019-03-17] MEDS ORDERED: SODIUM CHLORIDE 0.9% 500 ML 500 ML IV STA (21:22)
[2019-03-17 21:24] LABS: Glucose,Whole Blood 506 mg/dL (75-99)
[2019-03-17 21:56] LABS: Glucose,Whole Blood 395 mg/dL (75-99)
[2019-03-17 22:46] LABS: Glucose,Whole Blood 349 mg/dL (75-99)
[2019-03-17] MEDS: ALPRAZolam 0.5 MG TAB PO PRN (23:10)
[2019-03-17] MEDS: INSULIN DETEMIR (LEVEMIR) 100 UNIT/ML SYR SQ SCH (23:10)
[2019-03-17] MEDS: Acetaminophen-Codeine 300-30mg TAB PO PRN (23:10)
[2019-03-17] MEDS: GABAPENTIN 300 MG CAP PO SCH (23:10)
[2019-03-17] MEDS: NATEGLINIDE 120 MG PO SCH (23:11)
[2019-03-17] MEDS: SODIUM CHLORIDE 0.9% 1,000 ML IV SCH (23:11)
[2019-03-18] MEDS: SODIUM CHLORIDE 0.9% 1,000 ML IV SCH ×3 (05:13→20:56)
[2019-03-18] MEDS: NATEGLINIDE 120 MG PO SCH ×3 (07:13→20:59)
[2019-03-18] MEDS: ALPRAZolam 0.5 MG TAB PO PRN ×2 (07:19→20:55)
[2019-03-18] MEDS: metFORMIN 500 MG TAB PO SCH ×2 (07:20→20:55)
[2019-03-18] MEDS: INSULIN DETEMIR (LEVEMIR) 100 UNIT/ML SYR SQ SCH (07:20)
[2019-03-18] MEDS: GABAPENTIN 300 MG CAP PO SCH ×3 (07:20→20:55)
[2019-03-18] MEDS: INSULIN ASPART (NovoLOG) 100 UNIT/ML VIAL SQ SCH ×4 (07:20→20:56)
[2019-03-18 07:21] LABS: Glucose,Whole Blood 303 mg/dL (75-99)
[2019-03-18] MEDS: Acetaminophen-Codeine 300-30mg TAB PO PRN ×2 (07:25→20:55)
[2019-03-18] MEDS ORDERED: INSULIN DETEMIR (LEVEMIR) 100 UNIT/ML SYR SQ SCH (09:00)
[2019-03-18 12:08] LABS: Glucose,Whole Blood 212 mg/dL (75-99)
[2019-03-18 13:32] VITALS: BMI 35.6
[2019-03-18 17:19] LABS: Glucose,Whole Blood 235 mg/dL (75-99)
[2019-03-18 20:48] LABS: Glucose,Whole Blood 254 mg/dL (75-99)
[2019-03-18] MEDS ORDERED: traZODone HCL 50 MG TAB PO SCH (21:00)
[2019-03-18] MEDS ORDERED: ARIPiprazole 15 MG TAB PO SCH (21:00)
[2019-03-18] MEDS ORDERED: DULoxetine HCL 30 MG CAPSULE.DR PO SCH (21:00)
[2019-03-18] MEDS ORDERED: ATORVASTATIN 20 MG TAB PO SCH (21:00)
--- NOTE | 2019-03-19 00:57 | HP ---
HISTORY AND PHYSICAL SUBJECTIVE: 53-year-old white male admitted to the hospital with a glucose level in the high 600s near 700s as he is not taking his insulin as he is depressed because he was caring for his mom who was blind. He has a lot of pressure on him. He denies suicide but he is severely depressed over his mom. Denies any fever, chills, polyuria, polydipsia. MEDICATIONS: He is supposed to be on Cymbalta, gabapentin, Abilify, metformin, Lipitor, insulin. ALLERGIES: TRAMADOL. REVIEW OF SYMPTOMS: 14-point review of systems negative except for mentioned in HPI. FAMILY HISTORY: Sister with breast cancer. PHYSICAL EXAMINATION: Vital signs stable. Afebrile. CARDIOVASCULAR: S1, S2. Lungs clear. GI soft. Hematology negative Homans. Psych: Fair mood and affect. Neurologic: Alert and orient x3. Ophthalmological: Pupils equal, round, react to light and accommodation. EKG sinus rhythm. Glucose 691 on admission, sodium 132. ASSESSMENT AND PLAN: 1. Hyperglycemia. 2. Dehydration. 3. Depression. 4. Anxiety. 5. Psych consult. 6. Insulin. 7. Insulin drip. 8. Switched to Accu-Chek protocol once stabilized. 9. Get psych consult. MMODL / IJN: [id number] /
[2019-03-19 07:35] LABS: Glucose,Whole Blood 287 mg/dL (75-99)
[2019-03-19] MEDS: INSULIN DETEMIR (LEVEMIR) 100 UNIT/ML SYR SQ SCH (08:09)
[2019-03-19] MEDS: ALPRAZolam 0.5 MG TAB PO PRN ×2 (08:09→22:00)
[2019-03-19] MEDS: metFORMIN 500 MG TAB PO SCH (08:09)
[2019-03-19] MEDS: GABAPENTIN 300 MG CAP PO SCH (08:09)
[2019-03-19] MEDS: NATEGLINIDE 120 MG PO SCH ×3 (08:10→21:55)
[2019-03-19] MEDS: SODIUM CHLORIDE 0.9% 1,000 ML IV SCH (08:10)
[2019-03-19] MEDS: INSULIN ASPART (NovoLOG) 100 UNIT/ML VIAL SQ SCH ×4 (08:10→21:54)
[2019-03-19] MEDS: Acetaminophen-Codeine 300-30mg TAB PO PRN ×2 (08:11→21:59)
[2019-03-19 11:43] LABS: Glucose,Whole Blood 344 mg/dL (75-99)
[2019-03-19] MEDS ORDERED: ARTIFICIAL TEARS-HYPROMELLOSE DROPS 15 ML BTL BOTH EYES PRN (14:24)
[2019-03-19 17:04] LABS: Glucose,Whole Blood 328 mg/dL (75-99)
--- NOTE | 2019-03-19 17:33 | P.CN ---
Psychiatric Consult - . Consult date: 03/19/19 Consult:: 03/19/19 17:17 IDENTIFYING DATA: This patient is a 53-year-old male who currently lives with a friend and was recently evicted from his apartment which she was living near his mom and was her shovel engineer she is blind. Patient collects service connection pension from the [place] and is unmarried and has no kids. HISTORY OF PRESENT ILLNESS: The patient was brought into the hospital for having an increase in his blood sugars greater than 600 has been noncompliant and feeling depressed. As per patient's nurse, claims that patient has been caring for his mother who is blind and finding it stressful however has been cooperative since being in the hospital and has not endorsed any suicidality. Psychiatry was consulted for depression. Patient was evaluated this afternoon at the bedside and was in his regular street clothing listening to music and watching TV. Patient was agreeable to speak and was cooperative and polite with loan underwriter. Patient claims that he is in the hospital for "mismanagement and neglect" and claims that she has not been caring for himself including taking his medications and insulin. He states that he is having a tough time caring for his mother for years now she is blind. She also states that she "messed up" and didn't pay his rent on time and therefore got evicted from his apartment in the same building as were his mom lives and states that "now it's a lot harder for me to check on her, I had it so good before". Patient states that his mood is and has always been a "melancholy" and claims that he has never really felt happy however states that he has never felt suicidal or very depressed. He states that since being in the hospital he has been doing better helping his blood sugars come down. He denies any anxiety at this time. When asked about his medications patient states that the [facility] in [place] gives him trazodone 150 mg at night, Cymbalta 30 mg at night and Abilify 30 mg at night and he gets Xanax from a primary care doctor. Patient states that his sleep has been "up and down and states that he feels more anxious at night and paces the hallways. He denies any problems with his appetite and states that he does not have any access to guns or weapons at this time. At this time patient denies any suicidal or homical ideations, intent or plan. Patient denies any auditory, visual hallucinations and denies any paranoia or delusions. PAST PSYCHIATRIC HISTORY: Patient states that he has a history of chronic depression has been seen and follows up at the [facility] denies any previous suicide attempts and claims to have over 5 admissions to a psych hospitalization. He says his last admission was in spring. PAST MEDICAL HISTORY: Diabetes mellitus noncompliant, chronic back pain and sciatica. ALLERGIES: Tramadol. CHEMICAL DEPENDENCY HISTORY: Patient states that she does not use any substances at this time including alcohol and marijuana and patient's UDS on admission is negative.. FAMILY PSYCHIATRIC/SUBSTANCE USE HISTORY: He claims his father was depressed and states that his sister committed suicide secondary to her depression from breast cancer. SOCIAL HISTORY: He states that he is born and raised in [facility] and served in the [employer] from [id number]. 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 MENTAL STATUS EXAM: General Appearance: Patient appears to be stated age is alert, pleasant, and cooperative. Patient is wearing a hat listening to music and wearing street clothing Behavior: Patient is calmly lying in bed without any agitated behavior. No acute distress Speech: Patient's speech is fluent and nonpressured. Mood/Affect: Patient reports their mood is "melancholy", affect is congruent and constricted Suicidality/Homicidality: Patient denies having any suicidal or homicidal ideation intent or plan. Perceptions: Patient denies any auditory or visual hallucinations. Though content/process: There is no evidence of any delusional thought content and thought process is linear and goal-directed. Some depressive content Memory and concentration: AOX3, grossly intact for the purposes of this session. Can spell "WORLD" backwards Judgment and insight: fair IMPRESSIONS: Depressive disorder unspecified, rule out Persistent depressive disorder PLAN: -At this time patient patient does NOT meet criteria for inpatient psychiatric admission. -Would recommend the following medication changes/additions: Change Abilify to 25 mg daily dosing instead of nightly as patient was probably experiencing akathisia/pacing/insomnia. Increased Cymbalta to 60 mg nightly for mood and pain. Trazodone ordered at home dose of 150 mg daily at bedtime for insomnia and mood. -Spoke with patient in detail about his need to follow-up at one outpatient psy chiatrist at the [facility] and to have an appointment made prior to him leaving/being discharged from this hospital. I also explained that patient can go to the [facility] for a walk-in appointment at any time and be seen by a psychiatrist for medication management that's urgent. I also explained to him that he can get housing assistance at the [facility] at any time as a walk-in. Patient agreed and verbally understood. -Spoke with patient and recommend him have a blister pack for his medications to help him keep track of the dosing and be more compliant. -Social work to assist with patient to give him any resources or assistance with trying to obtain his apartment back which will allow him to help take care of his mother. -Psychiatry will sign off at this point Thank you for the consult 03/19/19 17:20
[2019-03-19 21:10] LABS: Glucose,Whole Blood 279 mg/dL (75-99)
[2019-03-19] MEDS: traZODone HCL 50 MG TAB PO SCH (21:54)
--- NOTE | 2019-03-19 22:16 | PN ---
PROGRESS NOTE This patient is a white male. His glucose is down to the 200 to 300s. Sitting up in bed. He states he has seen psychiatrists and wants treatment for his anxiety, which is severe at this point. I told him I have to discuss with the psychiatrist what he can have; what he wants is Klonopin. He used to take it in the past. CARDIOVASCULAR: S1, S2. LUNGS: Clear. GI: Soft. HEMATOLOGY: Negative Homans. PSYCH: Fair mood and affect. ASSESSMENT: 1. Insulin-dependent diabetes mellitus. 2. Depression. 3. Noncompliance due to depression. Continue current treatments. Follow up in the next 24 to 48 hours for possible discharge. MMODL / IJN: [id number] /
[2019-03-20] MEDS: SODIUM CHLORIDE 0.9% 1,000 ML IV SCH ×3 (01:19→23:56)
[2019-03-20 07:24] LABS: Glucose,Whole Blood 268 mg/dL (75-99)
[2019-03-20] MEDS: INSULIN ASPART (NovoLOG) 100 UNIT/ML VIAL SQ SCH ×4 (07:47→20:58)
[2019-03-20] MEDS: DULoxetine HCL 60 MG CAPSULE.DR PO SCH (07:48)
[2019-03-20] MEDS: ARIPiprazole 5 MG TAB PO SCH (07:48)
[2019-03-20] MEDS: INSULIN DETEMIR (LEVEMIR) 100 UNIT/ML SYR SQ SCH (07:50)
[2019-03-20] MEDS: NATEGLINIDE 120 MG PO SCH ×3 (07:50→21:39)
[2019-03-20] MEDS: ALPRAZolam 0.5 MG TAB PO PRN ×2 (07:56→22:01)
[2019-03-20] MEDS ORDERED: INSULIN DETEMIR (LEVEMIR) 100 UNIT/ML SYR SQ ONE (09:30)
[2019-03-20 11:40] LABS: Glucose,Whole Blood 301 mg/dL (75-99)
[2019-03-20] MEDS: Acetaminophen-Codeine 300-30mg TAB PO PRN ×2 (11:54→17:51)
--- NOTE | 2019-03-20 14:48 | P.PN ---
Subjective Progress Note Date: 03/20/19 This is a 53-year-old gentleman admitted with hyperglycemia in a patient with insulin-dependent diabetes mellitus, noncompliant secondary to depression and multiple other medical issues. Good diet intake with no nausea or vomiting. Blood sugars ranging from 260s to mid 300s. Staff reports patient has been sleeping all morning long, family calling into the main desk as patient not answering phone calls. Denies being suicidal, denies suicidal plan .Evaluated by psychiatry with recommendations noted. Denies chest pain, palpitations or shortness of breath. Denies lightheadedness, dizziness or focal deficits. Objective - Vital Signs Vital signs: Vital Signs Temp 97.8 F 03/20/19 05:15 Pulse 85 03/20/19 05:15 Resp 16 03/20/19 05:15 BP 114/71 03/20/19 05:15 Pulse Ox 95 03/20/19 05:15 Intake & Output 03/19/19 03/20/19 03/20/19 18:59 06:59 18:59 Intake Total 400 Balance 400 Intake: Oral 400 Other: Voiding Method Toilet Toilet Urinal Urinal # Voids 2 2 - Exam PHYSICAL EXAM: VITAL SIGNS: As above GENERAL: Lying in bed, resting, easily arousable HEENT: Conjunctivae normal. eyes normal. Oral mucosa moist NECK: No JVD. No thyroid enlargement. No LNs CARDIOVASCULAR: S1, S2 regular.. No murmur RESPIRATION: Breath sounds diminished in the bases. No rhonchi or crackles. No wheezing, No bronchial breathing. ABDOMEN: Soft, nontender . No guarding. no masses palpable. Bowel sounds heard. LEGS: No edema. no swelling PSYCHIATRY: Alert and oriented X3, mood fair and affect flat NERVOUS SYSTEM: Cranial N 2-12 grossly normal. Moves all 4 limbs. No focal deficits. Strength and sensation grossly intact.. Skin: no lesions, no rash - Labs CBC & Chem 7: 03/17/19 19:10 03/17/19 19:10 Labs: Abnormal Lab Results - Last 24 Hours (Table) 03/19/19 03/19/19 03/20/19 Range/Units 16:29 21:03 07:14 POC Glucose (mg/dL) 328 H 279 H 268 H (75-99) mg/dL 03/20/19 Range/Units 11:37 POC Glucose (mg/dL) 301 H (75-99) mg/dL Assessment and Plan Assessment: -Insulin-dependent diabetes mellitus, uncontrolled, hyperglycemia -Noncompliance secondary to depression Plan: Continue on current medication regime ,monitoring and symptomatic treatment. Increase ambulation as tolerated. Lantus dose increased, close monitoring of Accu-Cheks. Follow closely with psychiatry. Discharge planning in progress for tomorrow. The impression and plan of care has been dictated as directed. : I performed a history and examination of this patient, discussed the same with the dictator. I agree with the dictator's note ,documented as a scribe. Any additional findings or plans will be noted.
[2019-03-20 17:01] LABS: Glucose,Whole Blood 278 mg/dL (75-99)
[2019-03-20 20:56] VITALS: RESP 18
[2019-03-20 20:57] LABS: Glucose,Whole Blood 240 mg/dL (75-99)
[2019-03-20] MEDS: traZODone HCL 50 MG TAB PO SCH (22:04)
[2019-03-21 06:11] VITALS: BP 136/79; PULSE 71; TEMP 97.7
[2019-03-21] MEDS ORDERED: INSULIN DETEMIR (LEVEMIR) 100 UNIT/ML SYR SQ SCH (07:00)
[2019-03-21 07:31] LABS: Glucose,Whole Blood 276 mg/dL (75-99)
[2019-03-21] MEDS: INSULIN ASPART (NovoLOG) 100 UNIT/ML VIAL SQ SCH (07:59)
[2019-03-21] MEDS: DULoxetine HCL 60 MG CAPSULE.DR PO SCH (08:00)
[2019-03-21] MEDS: ARIPiprazole 5 MG TAB PO SCH (08:01)
[2019-03-21] MEDS: ALPRAZolam 0.5 MG TAB PO PRN (08:07)
[2019-03-21] MEDS: NATEGLINIDE 120 MG PO SCH (08:12)
--- NOTE | 2019-03-22 16:35 | P.DS ---
Providers Date of admission: 03/19/19 12:59 Expected date of discharge: 03/21/19 Attending physician: Edwin Chicas Consults: 03/17/19 21:16 Consult Physician Routine Consulting Provider: Joesph Dowell Consult Reason/Comments: depression Do you want consulting provider notified?: Yes, Notify in am Primary care physician: Edwin Chicas [place] [facility] Course: Final Diagnoses: -Insulin-dependent diabetes mellitus, uncontrolled, hyperglycemia -Noncompliance secondary to depression Hospital course:This is a 53-year-old gentleman admitted with hyperglycemia in a patient with insulin-dependent diabetes mellitus, noncompliant secondary to depression and multiple other medical issues. Good diet intake with no nausea or vomiting. Blood sugars ranging from 260s to mid 300s. Staff reports patient has been sleeping all morning long, family calling into the main desk as patient not answering phone calls. Denies being suicidal, denies suicidal plan .Evaluated by psychiatry with recommendations noted. Denies chest pain, palpitations or shortness of breath. Denies lightheadedness, dizziness or focal deficits. Significant clinical improvement. Patient is being discharged home in a stable condition with guarded prognosis. EXAM: GENERAL: Alert and oriented 3, no acute distress CARDIOVASCULAR: S1, S2 regular.. No murmur RESPIRATION: Breath sounds diminished in the bases. No rhonchi or crackles. No wheezing. ABDOMEN: Soft, nontender . No guarding. no masses palpable. Bowel sounds heard. NERVOUS SYSTEM: No focal deficits. The impression and plan of care has been dictated as directed. : I performed a history and examination of this patient, discussed the same with the dictator. I agree with the dictator's note ,documented as a scribe. Any additional findings or plans will be noted. Time taken: 35 minutes Patient Condition at Discharge: Stable Plan - Discharge Summary Discharge Rx Participant: No New Discharge Prescriptions: New Artificial Tears-Hypromellose [Artificial Tear Drops] 1 drops BOTH EYES QID PRN bottle PRN Reason: Dry Eye(S) DULoxetine HCL [Cymbalta] 60 mg PO DAILY #30 capsule. traZODone HCL [Desyrel] 150 mg PO HS #30 tab ARIPiprazole [Abilify] 5 mg PO DAILY #10 tab ARIPiprazole [Abilify] 20 mg PO DAILY #10 tab Continue Nateglinide [Starlix] 120 mg PO TID Dulaglutide [Trulicity] 1.5 mg SQ Q7D Acetaminophen with Codeine [Tylenol with Codeine #4 Tablet] 1 tab PO BID ALPRAZolam [Xanax] 0.25 mg PO DAILY PRN PRN Reason: Anxiety INSULIN LISPRO (HumaLOG) [humaLOG] See Protocol SQ AC-TID Changed Insulin Glargine,Hum.rec.anlog [Basaglar Kwikpen U-100] 25 unit SQ DAILY #0 Discharge Medication List Nateglinide [Starlix] 120 mg PO TID 09/22/18 [History] ALPRAZolam [Xanax] 0.25 mg PO DAILY PRN 03/19/19 [History] Acetaminophen with Codeine [Tylenol with Codeine #4 Tablet] 1 tab PO BID 03/19/19 [History] Dulaglutide [Trulicity] 1.5 mg SQ Q7D 03/19/19 [History] INSULIN LISPRO (HumaLOG) [humaLOG] See Protocol SQ AC-TID 03/19/19 [History] ARIPiprazole [Abilify] 5 mg PO DAILY #10 tab 03/21/19 [Rx] ARIPiprazole [Abilify] 20 mg PO DAILY #10 tab 03/21/19 [Rx] Artificial Tears-Hypromellose [Artificial Tear Drops] 1 drops BOTH EYES QID PRN bottle 03/21/19 [Rx] DULoxetine HCL [Cymbalta] 60 mg PO DAILY #30 capsule. 03/21/19 [Rx] Insulin Glargine,Hum.rec.anlog [Basaglar Kwikpen U-100] 25 unit SQ DAILY #0 03/21/19 [Rx] traZODone HCL [Desyrel] 150 mg PO HS #30 tab 03/21/19 [Rx] Follow up Appointment(s)/Referral(s): [facility] [address] Psychiatry [Other] - 1 Week [facility], Psychiatry [Other] - 1 Week Edwin Chicas MD [Primary Care Provider] - 03/23/19 10:30 am (Please follow up with PCP for [employer] referral. ) Marcia Kilpatrick MD [STAFF PHYSICIAN] - (Please follow up with PCP for referral ) Patient Instructions/Handouts: How to Check your Blood Sugar (DC) Activity/Diet/Wound Care/Special Instructions: [facility] office (refund specialist) for appt if you would like- as you requested. Housing assistance through the [place] pharmacy in [place] can place all meds into blister packs [phone] Discharge Disposition: HOME SELF-CARE
== END 2019-03-21 11:44 | disposition home or self-care (01) | DRG 639 ==
LOC: EC 18:14 → 4MS4W 21:15 → OBSVTOIN 03-19 12:59
PROVIDERS: ADMIT Family Medicine; ATTEND Family Medicine
DX: E11.65 Type 2 diabetes mellitus with hyperglycemia (principal); E86.0 Dehydration; M54.9 Dorsalgia, unspecified; G89.29 Other chronic pain; F32.9 Major depressive disorder, single episode, unspecified; F41.9 Anxiety disorder, unspecified; E78.5 Hyperlipidemia, unspecified; I10 Essential (primary) hypertension; M54.30 Sciatica, unspecified side; D86.0 Sarcoidosis of lung; K76.0 Fatty (change of) liver, not elsewhere classified; Z91.19 Patient's noncompliance with other medical treatment and regimen; Z80.3 Family history of malignant neoplasm of breast; Z79.4 Long term (current) use of insulin; Z91.14 Patient's other noncompliance with medication regimen; Z79.84 Long term (current) use of oral hypoglycemic drugs; Z79.899 Other long term (current) drug therapy; Z88.5 Allergy status to narcotic agent; Z98.890 Other specified postprocedural states
CPT/HCPCS: 36415; 71046; 74018; 80053; 80306; 80320; 81003; 82009; 82550; 83690; 83735; 84484; 85025; 93005; 96360; 96361; 99285

== ENCOUNTER 2020-02-22 22:31 | Emergency (ER) | payer OTHER ==
--- NOTE | 2020-02-22 23:17 | ED ---
Back Pain HPI - General Chief Complaint: Back Pain/Injury Stated Complaint: Back pain Time Seen by Provider: 02/22/20 22:51 Source: patient, EMS Limitations: physical limitation - History of Present Illness Initial Comments: This patient is a 54-year-old man who presents to be evaluated for thoracic back pain. He states that on February 11, he fell striking his back against the side of a bathtub. He states that he was seen at [facility] where he reportedly had x-rays and he believes a computed tomography scan that were without evidence of fracture. The patient states that he went home and tried to manage but the pain is not improving. The patient denies any component of chest or abdominal pain. No cough or dyspnea. No difficulty with urination or bowel movements. The patient states that he does have chronic sciatic pain with radiation to the right leg. No weakness. MD Complaint: back pain, fall Onset/Timin -: days(s) Place: home Radiation: none Severity: moderate Quality: aching Consistency: constant Improves With: none Worsens With: movement Context: fall Associated Symptoms: denies other symptoms - Related Data Home Medications Medication Instructions Recorded Confirmed Nateglinide [Starlix] 120 mg PO TID 09/22/18 03/19/19 ALPRAZolam [Xanax] 0.25 mg PO DAILY PRN 03/19/19 03/19/19 Acetaminophen with Codeine 1 tab PO BID 03/19/19 03/19/19 [Tylenol with Codeine #4 Tablet] Dulaglutide [Trulicity] 1.5 mg SQ Q7D 03/19/19 03/19/19 INSULIN LISPRO (HumaLOG) [humaLOG] See Protocol SQ AC-TID 03/19/19 03/19/19 Previous Rx's Medication Instructions Recorded ARIPiprazole [Abilify] 5 mg PO DAILY #10 tab 03/21/19 ARIPiprazole [Abilify] 20 mg PO DAILY #10 tab 03/21/19 Artificial Tears-Hypromellose 1 drops BOTH EYES QID PRN bottle 03/21/19 [Artificial Tear Drops] DULoxetine HCL [Cymbalta] 60 mg PO DAILY #30 capsule. 03/21/19 Insulin Glargine,Hum.rec.anlog 25 unit SQ DAILY #0 03/21/19 [Basaglar Philipp U-100] traZODone HCL [Desyrel] 150 mg PO HS #30 tab 03/21/19 Methocarbamol [Robaxin-750] 750 mg PO TID PRN #30 tablet 02/23/20 Allergies Allergy/AdvReac Type Severity Reaction Status Date / Time tramadol AdvReac urine Verified 03/19/19 13:55 retention Review of Systems ROS Statement: Those systems with pertinent positive or pertinent negative responses have been documented in the HPI. ROS Other: All systems not noted in ROS Statement are negative. Constitutional: Denies: fever, chills, weakness Respiratory: Denies: cough, dyspnea Cardiovascular: Denies: chest pain, palpitations, orthopnea, edema, syncope Gastrointestinal: Denies: abdominal pain, vomiting, diarrhea, constipation Genitourinary: Denies: dysuria, hematuria Musculoskeletal: Reports: as per HPI, back pain Skin: Denies: rash Neurological: Denies: headache, weakness, numbness Past Medical History Past Medical History: Chest Pain / Angina, Diabetes Mellitus, Hyperlipidemia, Hypertension Additional Past Medical History / Comment(s): Fatty liver disease, Chronic back pain, pulmonary sarcoidosis History of Any Multi-Drug Resistant Organisms: None Reported Past Surgical History: Hernia Repair Past Anesthesia/Blood Transfusion Reactions: No Reported Reaction Past Psychological History: Depression Past Alcohol Use History: None Reported Past Drug Use History: None Reported - Past Family History Mother Family Medical History: Cancer Additional Family Medical History / Comment(s): breast Sister(s) Family Medical History: Cancer Additional Family Medical History / Comment(s): breast General Exam Limitations: physical limitation General appearance: alert, in no apparent distress Head exam: Present: atraumatic, normocephalic Eye exam: Present: normal appearance. Absent: scleral icterus, conjunctival injection ENT exam: Present: normal oropharynx Neck exam: Present: normal inspection, full ROM. Absent: tenderness Respiratory exam: Present: normal lung sounds bilaterally. Absent: respiratory distress, wheezes, rales, rhonchi, stridor, chest wall tenderness, accessory muscle use Cardiovascular Exam: Present: regular rate, normal rhythm, normal heart sounds. Absent: systolic murmur, diastolic murmur, rubs, gallop GI/Abdominal exam: Present: soft. Absent: distended, tenderness, guarding, rebound, rigid, mass Extremities exam: Present: normal inspection, normal capillary refill. Absent: pedal edema, calf tenderness Back exam: Present: normal inspection, paraspinal tenderness (Approximately T4 to T6 level), vertebral tenderness. Absent: CVA tenderness (R), CVA tenderness (L) Neurological exam: Present: alert, reflexes normal. Absent: motor sensory deficit Skin exam: Present: warm, dry, intact, normal color. Absent: rash Course Vital Signs 02/22/20 02/22/20 02/23/20 22:33 23:34 00:00 Temperature 98.5 F Pulse Rate 91 Respiratory 16 Rate Blood Pressure 74/50 85/69 91/62 O2 Sat by Pulse 100 98 Oximetry 02/23/20 02/23/20 01:13 01:30 Temperature 97.3 F L Pulse Rate 80 63 Respiratory 16 18 Rate Blood Pressure 120/76 125/73 O2 Sat by Pulse 98 95 Oximetry Medical Decision Making - Lab Data Result diagrams: 02/22/20 23:23 02/22/20 23:23 Lab Results 02/22/20 02/22/20 02/22/20 Range/Units 23:23 23:23 23:23 WBC 8.0 (3.8-10.6) k/uL RBC 4.77 (4.30-5.90) m/uL Hgb 14.2 (13.0-17.5) gm/dL Hct 42.4 (39.0-53.0) % MCV 89.0 (80.0-100.0) fL MCH 29.8 (25.0-35.0) pg MCHC 33.5 (31.0-37.0) g/dL RDW 14.2 (11.5-15.5) % Plt Count 258 (150-450) k/uL Neutrophils % 68 % Lymphocytes % 12 % Monocytes % 11 % Eosinophils % 5 % Basophils % 1 % Neutrophils # 5.4 (1.3-7.7) k/uL Lymphocytes # 1.0 (1.0-4.8) k/uL Monocytes # 0.9 (0-1.0) k/uL Eosinophils # 0.4 (0-0.7) k/uL Basophils # 0.1 (0-0.2) k/uL D-Dimer 0.74 H (<0.60) mg/L FEU Sodium 133 L (137-145) mmol/L Potassium 4.2 (3.5-5.1) mmol/L Chloride 96 L (98-107) mmol/L Carbon Dioxide 27 (22-30) mmol/L Anion Gap 10 mmol/L BUN 34 H (9-20) mg/dL Creatinine 1.30 H (0.66-1.25) mg/dL Est GFR (CKD-EPI)AfAm 71 (>60 ml/min/1.73 sqM) Est GFR (CKD-EPI)NonAf 62 (>60 ml/min/1.73 sqM) Glucose 115 H (74-99) mg/dL Plasma Lactic Acid Jose (0.7-2.0) mmol/L Calcium 10.3 H (8.4-10.2) mg/dL Total Bilirubin 0.6 (0.2-1.3) mg/dL AST 32 (17-59) U/L ALT 32 (4-49) U/L Alkaline Phosphatase 245 H (38-126) U/L Total Protein 6.7 (6.3-8.2) g/dL Albumin 3.8 (3.5-5.0) g/dL 02/22/20 Range/Units 23:23 WBC (3.8-10.6) k/uL RBC (4.30-5.90) m/uL Hgb (13.0-17.5) gm/dL Hct (39.0-53.0) % MCV (80.0-100.0) fL MCH (25.0-35.0) pg MCHC (31.0-37.0) g/dL RDW (11.5-15.5) % Plt Count (150-450) k/uL Neutrophils % % Lymphocytes % % Monocytes % % Eosinophils % % Basophils % % Neutrophils # (1.3-7.7) k/uL Lymphocytes # (1.0-4.8) k/uL Monocytes # (0-1.0) k/uL Eosinophils # (0-0.7) k/uL Basophils # (0-0.2) k/uL D-Dimer (<0.60) mg/L FEU Sodium (137-145) mmol/L Potassium (3.5-5.1) mmol/L Chloride (98-107) mmol/L Carbon Dioxide (22-30) mmol/L Anion Gap mmol/L BUN (9-20) mg/dL Creatinine (0.66-1.25) mg/dL Est GFR (CKD-EPI)AfAm (>60 ml/min/1.73 sqM) Est GFR (CKD-EPI)NonAf (>60 ml/min/1.73 sqM) Glucose (74-99) mg/dL Plasma Lactic Acid Jose 2.0 (0.7-2.0) mmol/L Calcium (8.4-10.2) mg/dL Total Bilirubin (0.2-1.3) mg/dL AST (17-59) U/L ALT (4-49) U/L Alkaline Phosphatase (38-126) U/L Total Protein (6.3-8.2) g/dL Albumin (3.5-5.0) g/dL Disposition Clinical Impression: Dehydration, Thoracic back pain Disposition: HOME SELF-CARE Condition: Good Instructions (If sedation given, give patient instructions): Back Pain (ED) Prescriptions: Methocarbamol [Robaxin-750] 750 mg PO TID PRN #30 tablet PRN Reason: pain Is patient prescribed a controlled substance at d/c from ED?: No Referrals: Edwin Chicas MD [Primary Care Provider] - 1-2 days
[2020-02-22 23:42] LABS: Albumin 3.8 g/dL (3.5-5.0); Calcium 10.3 mg/dL (8.4-10.2); Potassium 4.2 mmol/L (3.5-5.1); Total Bilirubin 0.6 mg/dL (0.2-1.3); Total Protein 6.7 g/dL (6.3-8.2)
--- NOTE | 2020-02-23 00:13 | XR ---
EXAMINATION TYPE: XR thoracic spine complete DATE OF EXAM: 02/22/2020 COMPARISON: 03/17/2019 HISTORY: Back pain. Fall. TECHNIQUE: 4 views FINDINGS: Thoracic vertebra have normal alignment. Posterior elements are intact. There is no paraspi nal mass. There is hypertrophic anterior spurring in the mid and lower thoracic spine. I see no compr ession fracture. IMPRESSION: Multilevel spondylotic changes. Hypertrophic spurring in the thoracic spine is increased compared to old exam. No fracture seen.
[2020-02-23] MEDS ORDERED: SODIUM CHLORIDE 0.9% 1,000 ML IV ONE ×2 (00:15→00:25)
[2020-02-23] MEDS ORDERED: HYDROcodone/APAP 5-325MG 1 EACH TAB PO STA (00:16)
[2020-02-23 00:52] LABS: Basophils # (A) 0.1 k/uL (0-0.2); Basophils % (A) 1 %; Eosinophils # (A) 0.4 k/uL (0-0.7); Eosinophils % (A) 5 %; HCT 42.4 % (39.0-53.0); HGB 14.2 gm/dL (13.0-17.5); Lymphocytes % (A) 12 %; MCH 29.8 pg (25.0-35.0); MCHC 33.5 g/dL (31.0-37.0); Monocytes # (A) 0.9 k/uL (0-1.0); Monocytes % (A) 11 %; Neutrophils # (A) 5.4 k/uL (1.3-7.7); Neutrophils % (A) 68 %; Platelet Count 258 k/uL (150-450); RBC 4.77 m/uL (4.30-5.90); RDW 14.2 % (11.5-15.5)
--- NOTE | 2020-02-23 01:32 | CT ---
EXAMINATION TYPE: CT chest angio for PE DATE OF EXAM: 02/23/2020 COMPARISON: None HISTORY: PE Chest pain CT DLP: 931.00 mGycm Automated exposure control for dose reduction was used. CONTRAST: Performed with IV Contrast, patient injected with 100 mL of Isovue 370. There are 3-D post processed images. FINDINGS: The lungs are clear of consolidation. There is a 1 cm nodular density with calcification in the super ior segment right lower lobe consistent with a granuloma. There is minimal subsegmental atelectasis a t the lung bases. Heart is slightly enlarged. There is no pericardial effusion. There is no pleural e ffusion. Upper abdominal soft tissues are intact. There are calcified multiple granulomata at the right pulmonary hilum. There are a few left side bron chial calcified granulomata. There are anterior mediastinal lymph nodes that measure up to 1.5 cm and contain calcium. Thoracic aorta is intact. There is no aneurysm or dissection. There is normal contrast opacification of the pulmonary arteries. There are no filling defects. Bony thorax is intact. Sternum is intact. IMPRESSION: No evidence of pulmonary embolism. Old granulomatous disease. No evidence of definite acute lung disease.
[2020-02-23 01:52] VITALS: RESP 18
[2020-02-23 02:35] VITALS: BP 132/78; PULSE 82; TEMP 97.2
== END 2020-02-23 02:35 | disposition home or self-care (01) ==
LOC: EC 22:31
DX: M54.6 Pain in thoracic spine (principal); E86.0 Dehydration; F32.9 Major depressive disorder, single episode, unspecified; E11.9 Type 2 diabetes mellitus without complications; G89.29 Other chronic pain; M54.9 Dorsalgia, unspecified; Z79.4 Long term (current) use of insulin; Z79.899 Other long term (current) drug therapy; Z79.891 Long term (current) use of opiate analgesic; Z88.5 Allergy status to narcotic agent
CPT/HCPCS: 85379; 80053; 83605; 85025; 72072; 71275; 99284; 96360; 96361; Q9967

== ENCOUNTER 2020-03-29 23:50 | Inpatient (IN) | payer OTHER ==
[2020-03-30 00:22] LABS: Basophils # (A) 0.1 k/uL (0-0.2); Basophils % (A) 1 %; Eosinophils # (A) 0.3 k/uL (0-0.7); Eosinophils % (A) 4 %; HCT 38.9 % (39.0-53.0); HGB 12.9 gm/dL (13.0-17.5); Lymphocytes # (A) 1.2 k/uL (1.0-4.8); Lymphocytes % (A) 14 %; MCH 29.3 pg (25.0-35.0); MCHC 33.2 g/dL (31.0-37.0); MCV 88.2 fL (80.0-100.0); Mean Platelet Volume 7.1; Monocytes # (A) 0.6 k/uL (0-1.0); Monocytes % (A) 8 %; Neutrophils # (A) 6.2 k/uL (1.3-7.7); Neutrophils % (A) 72 %; Platelet Count 196 k/uL (150-450); RBC 4.41 m/uL (4.30-5.90); RDW 12.8 % (11.5-15.5); WBC 8.6 k/uL (3.8-10.6)
--- NOTE | 2020-03-30 00:23 | ED ---
Chest Pain HPI - General Chief Complaint: Chest Pain Stated Complaint: chest pain Time Seen by Provider: 03/29/20 23:52 Source: EMS, RN notes reviewed, old records reviewed Mode of arrival: EMS Limitations: no limitations - History of Present Illness Initial Comments: This is a 54-year-old male DF presents today for evaluation regards to chest pain abdominal pain epigastric pain. Patient has no significant trauma, no recent fevers. Patient feels tightness and shortness of breath. 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 Multiple ER visits with no improvement. Patient's pain was worsening today. Mild nausea no vomiting no other complaints of travel history sick contacts or diarrhea MD Complaint: chest pain, other (Epigastric abdominal pain) -: week(s) Onset: during rest, during exertion Pain Location: substernal, epigastric Pain Radiation: none Severity: moderate Severity scale (1-10): 4 Quality: tightness, sharp Consistency: intermittent Improves With: nothing Worsens With: nothing Anginal Symptoms: dyspnea Treatments Prior to Arrival: none - Related Data Home Medications Medication Instructions Recorded Confirmed Nateglinide [Starlix] 120 mg PO TID 09/22/18 03/19/19 ALPRAZolam [Xanax] 0.25 mg PO DAILY PRN 03/19/19 03/19/19 Acetaminophen with Codeine 1 tab PO BID 03/19/19 03/19/19 [Tylenol with Codeine #4 Tablet] Dulaglutide [Trulicity] 1.5 mg SQ Q7D 03/19/19 03/19/19 INSULIN LISPRO (HumaLOG) [humaLOG] See Protocol SQ AC-TID 03/19/19 03/19/19 Previous Rx's Medication Instructions Recorded ARIPiprazole [Abilify] 5 mg PO DAILY #10 tab 03/21/19 ARIPiprazole [Abilify] 20 mg PO DAILY #10 tab 03/21/19 Artificial Tears-Hypromellose 1 drops BOTH EYES QID PRN bottle 03/21/19 [Artificial Tear Drops] DULoxetine HCL [Cymbalta] 60 mg PO DAILY #30 capsule. 03/21/19 Insulin Glargine,Hum.rec.anlog 25 unit SQ DAILY #0 03/21/19 [Basaglar Kwikpen U-100] traZODone HCL [Desyrel] 150 mg PO HS #30 tab 03/21/19 Methocarbamol [Robaxin-750] 750 mg PO TID PRN #30 tablet 02/23/20 Allergies Allergy/AdvReac Type Severity Reaction Status Date / Time tramadol AdvReac urine Verified 03/19/19 13:55 retention Review of Systems ROS Statement: Those systems with pertinent positive or pertinent negative responses have been documented in the HPI. ROS Other: All systems not noted in ROS Statement are negative. EKG Findings - EKG Comments: EKG Findings:: EKG is sinus rhythm 83 MS 136 QRS 88 QTc 441 Past Medical History Past Medical History: Chest Pain / Angina, Diabetes Mellitus, Hyperlipidemia, Hypertension Additional Past Medical History / Comment(s): Fatty liver disease, Chronic back pain, pulmonary sarcoidosis History of Any Multi-Drug Resistant Organisms: None Reported Past Surgical History: Hernia Repair Past Anesthesia/Blood Transfusion Reactions: No Reported Reaction Past Psychological History: Depression Smoking Status: Never smoker Past Alcohol Use History: None Reported Past Drug Use History: None Reported - Past Family History Mother Family Medical History: Cancer Additional Family Medical History / Comment(s): breast Sister(s) Family Medical History: Cancer Additional Family Medical History / Comment(s): breast General Exam Limitations: no limitations General appearance: alert, in no apparent distress Head exam: Present: atraumatic, normocephalic, normal inspection Eye exam: Present: normal appearance, PERRL, EOMI. Absent: scleral icterus, conjunctival injection, periorbital swelling ENT exam: Present: normal exam, mucous membranes moist Neck exam: Present: normal inspection. Absent: tenderness, meningismus, lympha denopathy Respiratory exam: Present: normal lung sounds bilaterally. Absent: respiratory distress, wheezes, rales, rhonchi, stridor Cardiovascular Exam: Present: regular rate, normal rhythm, normal heart sounds. Absent: systolic murmur, diastolic murmur, rubs, gallop, clicks GI/Abdominal exam: Present: soft, normal bowel sounds. Absent: distended, tenderness, guarding, rebound, rigid Extremities exam: Present: normal inspection, full ROM, normal capillary refill. Absent: tenderness, pedal edema, joint swelling, calf tenderness Back exam: Present: normal inspection Neurological exam: Present: alert, oriented X3, CN II-XII intact Psychiatric exam: Present: normal affect, normal mood Skin exam: Present: warm, dry, intact, normal color. Absent: rash Course Vital Signs 03/30/20 00:03 Temperature 98.4 F Pulse Rate 83 Respiratory 17 Rate Blood Pressure 150/89 O2 Sat by Pulse 98 Oximetry - Reevaluation(s) Reevaluation #1: 03/30/20 01:23 Medical records reviewed 03/30/20 01:23 Multiple prior ER visits and hospitalizations are reviewed Reevaluation #2: 03/30/20 01:23 Patient has significant pain control here in the ER Reevaluation #3: 03/30/20 01:23 Patient informed of results and questions answered - Consultations Consultation #1: Spoke with Dr. Chicas who agrees to admit this patient Chest Pain MDM - MDM 84 male DF for chest pain we'll trend troponin admit patient for acute pancreatitis Disposition Clinical Impression: Chest pain, Acute pancreatitis Disposition: ADMITTED IP TO THIS HOSP Condition: Good Is patient prescribed a controlled substance at d/c from ED?: No Referrals: Edwin Chicas MD [Primary Care Provider] - 1-2 days
[2020-03-30 00:39] LABS: ALT 34 U/L (4-49); AST 27 U/L (17-59); African American GFR (CKD) >90 (>60 ml/min/1.73 sqM); Alkaline Phosphatase 200 U/L (38-126); Anion Gap 8 mmol/L; Blood Urea Nitrogen 29 mg/dL (9-20); Calcium 10.2 mg/dL (8.4-10.2); Carbon Dioxide 28 mmol/L (22-30); Chloride 98 mmol/L (98-107); Glucose 251 mg/dL (74-99); Magnesium 1.8 mg/dL (1.6-2.3); Non-African American GFR(CKD) >90 (>60 ml/min/1.73 sqM); Potassium 4.5 mmol/L (3.5-5.1); Sodium 134 mmol/L (137-145); Total Bilirubin 0.6 mg/dL (0.2-1.3)
[2020-03-30 00:42] LABS: Prothrombin Time 10.4 sec (9.0-12.0)
--- NOTE | 2020-03-30 00:53 | US ---
EXAMINATION TYPE: US gallbladder DATE OF EXAM: 03/30/2020 COMPARISON: NONE CLINICAL HISTORY: pain. Chest pain EXAM MEASUREMENTS: Liver Length: 17.9 cm Gallbladder Wall: 0.3 cm CBD: 0.6 cm Right Kidney: 13.7 x 5.7 x 5.5 cm Pancreas: visualized portions wnl Liver: enlarged at 17.9 cm Gallbladder: No stones seen Evidence for sonographic Fong's sign: No CBD: measures 0.6 cm Right Kidney: No hydronephrosis or masses seen IMPRESSION: Negative exam. No gallstones or dilated ducts.
--- NOTE | 2020-03-30 01:10 | XR ---
EXAMINATION TYPE: XR chest 2V DATE OF EXAM: 03/30/2020 COMPARISON: 03/17/2019 HISTORY: Chest pain TECHNIQUE: 2 views FINDINGS: Heart is normal. Lungs are clear of infiltrate. There is no heart failure. There are no hil ar masses. Costophrenic angles are clear. Bony thorax is intact. IMPRESSION: No active cardiopulmonary disease. Normal heart. No change.
[2020-03-30] MEDS ORDERED: PANTOPRAZOLE 40 MG/10 ML VIAL IVP STA (01:20)
[2020-03-30] MEDS ORDERED: ONDANSETRON 4 MG/2 ML VIAL IVP PRN (01:20)
[2020-03-30] MEDS: SODIUM CHLORIDE 0.9% 1,000 ML IV SCH ×3 (01:53→21:39)
[2020-03-30] MEDS: MORPHINE SULFATE 4 MG/ML SYRINGE IV PRN ×4 (02:25→20:56)
[2020-03-30 02:40] LABS: Glucose,Whole Blood 234 mg/dL (75-99)
[2020-03-30] MEDS ORDERED: HEPARIN SODIUM,PORCINE 5,000 UNIT/ML 1 ML VIAL IV PRN ×2 (04:10→04:41)
[2020-03-30] MEDS ORDERED: ASPIRIN 325 MG TAB PO STA (04:15)
[2020-03-30] MEDS ORDERED: METOPROLOL TARTRATE 25 MG TAB PO SCH ×2 (04:27→09:00)
[2020-03-30] MEDS ORDERED: HEPARIN SOD,PORK IN 0.45% NACL 25,000 UNIT in 0.45% NACL 1 250ML.BAG IV SCH ×2 (04:30→04:45)
[2020-03-30] MEDS ORDERED: NITROGLYCERIN OINT 1 INCH/GM PACKET TOPICAL SCH ×2 (04:35→06:00)
[2020-03-30] MEDS: HEPARIN SODIUM,PORCINE 5,000 UNIT/ML 1 ML VIAL IV ONE ×2 (04:51)
[2020-03-30 06:21] LABS: Glucose,Whole Blood 244 mg/dL (75-99)
[2020-03-30] MEDS: INSULIN ASPART (NovoLOG) 100 UNIT/ML VIAL SQ SCH ×4 (06:44→20:56)
[2020-03-30] MEDS ORDERED: ATORVASTATIN 40 MG TAB PO SCH (09:30)
[2020-03-30] MEDS: lisinopriL 10 MG TAB PO SCH (10:28)
[2020-03-30] MEDS: PANTOPRAZOLE 40 MG/10 ML VIAL IVP SCH (10:28)
--- NOTE | 2020-03-30 10:29 | P.CRDCN ---
History of Present Illness History of present illness: HISTORY OF PRESENTING ILLNESS This is a pleasant 54-year-old male past medical history significant for diabetes mellitus, hypertension, dyslipidemia, fatty liver disease and pulmonary sarcoidosis. 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 In August 2018 he underwent a cardiac catheterization with Dr. Kate revealing normal coronary arteries. We have been asked to see in consultation for chest pain. Dates for the previous 7 weeks he has been experiencing chest discomfort described as a tight squeezing sensation around his chest. He states he called EMS approximately 10 times in the previous 7 weeks secondary to his chest discomfort. He is here in [place] visiting his mother. Most of his hospitalizations over the previous 7 weeks have been at [facility]. He states most recently there he was diagnosed with probable cardiac sarcoidosis. He presented here while he was visiting his mom yesterday he again had another episode of chest discomfort is primarily on the right anterior chest wall that radiates through to the right scapular region. The pain is exacerbated by movement of his torso or arms. He had some associated shortness of breath at times. He denies dizziness, nausea, vomiting, diaphoresis or palpitations. DIAGNOSTICS EKG reveals sinus mechanism heart rate of 83 with left anterior fascicular block. Chest xray negative for an acute cardiopulmonary process. Gallbladder ultrasound is unremarkable. Laboratory reviewed, WBC 8.6, hemoglobin 12.9, platelets 196, sodium 134, potassium 4.5, creatinine 0.94, magnesium 1.8, initial troponin 0.025, 0.043, 0.054 and 0.046, NT proBNP 1220 and lipase 564. Current cardiac medications include atorvastatin 80 mg daily and Toprol 25 mg daily. REVIEW OF SYSTEMS At the time of my exam: CONSTITUTIONAL: Denies fever or chills. CARDIOVASCULAR: Denies chest pain, shortness of breath, orthopnea, PND or palpitations. RESPIRATORY: Denies cough. GASTROINTESTINAL: Denies abdominal pain, diarrhea, constipation, nausea or vomiting. MUSCULOSKELETAL: Denies myalgias. NEUROLOGIC: Denies numbness, tingling or weakness. ENDOCRINE: Denies fatigue, weight change, polydipsia or polyurina. GENITOURINARY: Denies burning, hematuria or urgency with micturation. HEMATOLOGIC: Denies history of anemia or bleeding. PHYSICAL EXAMINATION Blood pressure 157/90 heart rate 82 afebrile and maintaining oxygen saturation on room air. CONSTITUTIONAL: No apparent distress. Obese. HEENT: Head is normocephalic. Pupils are equal, round. Sclerae anicteric. Mucous membranes of the mouth are moist. No JVD. No carotid bruit. CHEST EXAMINATION: Lungs are clear to auscultation. Right anterior wall chest wall tenderness is noted on palpation. HEART EXAMINATION: Regular rate and rhythm. S1, S2 heard. No murmurs, gallops or rub. ABDOMEN: Soft, nontender. Positive bowel sounds. EXTREMITIES: 2+ peripheral pulses, no lower extremity edema and no calf tenderness. NEUROLOGIC EXAMINATION: Patient is awake, alert and oriented x3. ASSESSMENT Chest pain, atypical for angina. No EKG evidence of ischemia and normal cardiac catheterization August 2018. Troponin leak of unclear etiology. Symptoms are not suggestive of unstable angina. Diabetes mellitus Hypertension Dyslipidemia Pulmonary sarcoidosis PLAN Troponin elevation is not indicative of an acute coronary syndrome. Discontinue heparin infusion. We will pursue a dobutamine stress echocardiogram tomorrow morning. Hold beta blockers. Initiate lisinopril 10 mg daily and aspirin 81 mg daily. Continue atorvastatin. Request records from [facility] for review. Thank you kindly for this consultation. Nurse Practitioner note has been reviewed, I agree with a documented findings and plan of care. Patient was seen and examined. Past Medical History Past Medical History: Chest Pain / Angina, Diabetes Mellitus, Hyperlipidemia, Hypertension Additional Past Medical History / Comment(s): Fatty liver disease, Chronic back pain, pulmonary sarcoidosis History of Any Multi-Drug Resistant Organisms: None Reported Past Surgical History: Hernia Repair Past Anesthesia/Blood Transfusion Reactions: No Reported Reaction Past Psychological History: Depression Smoking Status: Never smoker Past Alcohol Use History: None Reported Past Drug Use History: None Reported - Past Family History Mother Family Medical History: Cancer Additional Family Medical History / Comment(s): breast Sister(s) Family Medical History: Cancer Additional Family Medical History / Comment(s): breast Medications and Allergies Home Medications Medication Instructions Recorded Confirmed Type ARIPiprazole [Abilify] 5 mg PO HS 03/30/20 03/30/20 History Atorvastatin [Lipitor] 80 mg PO HS 03/30/20 03/30/20 History DULoxetine HCL [Cymbalta] 90 mg PO DAILY 03/30/20 03/30/20 History Gabapentin [Neurontin] 300 mg PO TID 03/30/20 03/30/20 History Insulin NPH Hum/Reg Insulin Hm 60 units SQ BID 03/30/20 03/30/20 History [Novolin 70-30 Flexpen] Metoprolol Succinate [Toprol XL] 25 mg PO DAILY 03/30/20 03/30/20 History Tamsulosin [Flomax] 0.4 mg PO DAILY 03/30/20 03/30/20 History traZODone HCL 200 mg PO HS 03/30/20 03/30/20 History Allergies Allergy/AdvReac Type Severity Reaction Status Date / Time tramadol AdvReac urine Verified 03/30/20 08:52 retention Physical Exam Vitals: Vital Signs Temp Pulse Pulse Resp BP BP Pulse Ox 03/30/20 05:48 97.9 F 82 18 97 03/30/20 03:09 98 03/30/20 02:33 97.6 F 82 16 157/90 98 03/30/20 01:53 97.8 F 80 18 150/95 98 03/30/20 00:03 98.4 F 83 17 150/89 98 Intake and Output 03/29/20 03/30/20 03/30/20 22:59 06:59 14:59 Output Total 600 Balance -600 Output: Urine 600 Other: Voiding Method Toilet # Voids 1 Weight 122.47 kg Results 03/30/20 00:09 03/30/20 00:09 Cardiac Enzymes 03/30/20 03/30/20 03/30/20 Range/Units 00:09 00:09 02:41 AST 27 (17-59) U/L Troponin I 0.025 0.043 H* (0.000-0.034) ng/mL 03/30/20 Range/Units 06:25 AST (17-59) U/L Troponin I 0.054 H* (0.000-0.034) ng/mL Coagulation 03/30/20 Range/Units 00:09 PT 10.4 (9.0-12.0) sec APTT 23.0 (22.0-30.0) sec CBC 03/30/20 Range/Units 00:09 WBC 8.6 (3.8-10.6) k/uL RBC 4.41 (4.30-5.90) m/uL Hgb 12.9 L (13.0-17.5) gm/dL Hct 38.9 L (39.0-53.0) % Plt Count 196 (150-450) k/uL Comprehensive Metabolic Panel 03/30/20 Range/Units 00:09 Sodium 134 L (137-145) mmol/L Potassium 4.5 (3.5-5.1) mmol/L Chloride 98 (98-107) mmol/L Carbon Dioxide 28 (22-30) mmol/L BUN 29 H (9-20) mg/dL Creatinine 0.94 (0.66-1.25) mg/dL Glucose 251 H (74-99) mg/dL Calcium 10.2 (8.4-10.2) mg/dL AST 27 (17-59) U/L ALT 34 (4-49) U/L Alkaline Phosphatase 200 H (38-126) U/L Total Protein 7.0 (6.3-8.2) g/dL Albumin 4.0 (3.5-5.0) g/dL Current Medications Generic Name Dose Route Start Last Admin Trade Name Freq PRN Reason Stop Dose Admin Aspirin 325 mg 03/31/20 09:00 Aspirin 325 Mg Tab PO DAILY ELENITA Heparin Sodium (Porcine) 0 unit 03/30/20 04:10 Heparin Sodium,Porcine 5,000 Unit/Ml 1 Ml Vial IV PER PROTOCOL PRN Low PTT Protocol Sodium Chloride 1,000 mls @ 100 mls/hr 03/30/20 01:30 03/30/20 01:53 Saline 0.9% IV 100 mls/hr .Q10H ELENITA Administration Heparin Sodium/Sodium Chloride 250 mls @ 9.994 mls/hr 03/30/20 04:45 03/30/20 04:48 25,000 unit/ Sodium Chloride IV 8.16 units/kg/hr .Q24H ELENITA 9.994 mls/hr Administration Protocol 8.16 UNITS/KG/HR Insulin Aspart 0 unit 03/30/20 07:30 03/30/20 06:44 Insulin Aspart (Novolog) 100 Unit/Ml Vial SQ 5 unit ACHS ELENITA Administration Protocol Metoprolol Tartrate 25 mg 03/30/20 04:27 03/30/20 04:52 Metoprolol Tartrate 25 Mg Tab PO 25 mg BID ELENITA Administration Morphine Sulfate 4 mg 03/30/20 01:20 03/30/20 06:43 Morphine Sulfate 4 Mg/Ml Syringe IV 4 mg Q4HR PRN Administration Chest Pain Nitroglycerin 1 inch 03/30/20 04:35 03/30/20 04:52 Nitroglycerin Oint 1 Inch/Gm Packet TOPICAL 1 inch Q6HR ELENITA Administration Ondansetron HCl 4 mg 03/30/20 01:20 Ondansetron 4 Mg/2 Ml Vial IVP Q6HR PRN Nausea And Vomiting Pantoprazole Sodium 40 mg 03/30/20 09:00 Pantoprazole 40 Mg/10 Ml Vial IVP DAILY ELENITA Intake and Output 03/29/20 03/30/20 03/30/20 22:59 06:59 14:59 Output Total 600 Balance -600 Output: Urine 600 Other: Voiding Method Toilet # Voids 1 Weight 122.47 kg 03/30/20 00:09 03/30/20 00:09
[2020-03-30] MEDS ORDERED: RX INFO: IV CONTRAST WAS GIVEN 1 EACH MISC MISCELLANE PRN (11:35)
--- NOTE | 2020-03-30 11:49 | HP ---
HISTORY AND PHYSICAL 54-year-old white male with past medical history of diabetes mellitus, hypertension, dyslipidemia, fatty liver disease, pulmonary sarcoidosis, had a heart catheterization 2018, normal coronary arteries August 2018. He came in with chest pain with elevated troponin. Tight squeezing around his chest. He called the EMS 10 times in the previous 7 weeks secondary to chest discomfort. He is here in [place] visiting his mother. Previous 7 weeks he has been done at [facility] multiple admissions. They said he had probably cardiac sarcoidosis. Pains shooting back to his back to the scapular region. He also has elevated lipase. He has some shortness of breath at different times. EKG sinus rhythm, left anterior fascicular block. Chest x-ray is negative. Gallbladder is negative. Elevated lipase, elevated troponins x3. MEDICATIONS: See list, includes: Toprol-XL 50 25 daily, atorvastatin 80 mg daily, and some psychiatric medications. REVIEW OF SYMPTOMS: 14-point review of systems negative except for mentioned in HPI. PHYSICAL EXAMINATION: Blood pressure 150s over 90s, heart rate 80s, O2 saturation is maintaining on room air. CONSTITUTIONAL: Obese, no acute distress. HEAD: Normocephalic, atraumatic. LUNGS are clear. HEART S1, S2. ABDOMEN: Soft. EXTREMITIES: 2+ peripheral pulses. NEUROLOGIC: Alert and orient x3. ASSESSMENT: 1. Atypical chest pain. Normal EKG, heart catheterization normal. Has an echo and stress test ordered. 2. Elevated troponins of unclear etiology. 3. Diabetes mellitus. 4. Hypertension. 5. Dyslipidemia. 6. Pulmonary sarcoidosis. Can do stress test in the morning and they held his beta blockers and started him on lisinopril and aspirin. Beginning to get records from [facility]. Please see further orders. MMODL / IJN: [id number] /
[2020-03-30 12:31] LABS: Glucose,Whole Blood 256 mg/dL (75-99)
--- NOTE | 2020-03-30 12:38 | CT ---
EXAMINATION TYPE: CT chest w con DATE OF EXAM: 03/30/2020 COMPARISON: Prior CT 02/23/2020 HISTORY: Sarcoid CT DLP: 728 mGycm Automated exposure control for dose reduction was used. CONTRAST: CT scan of the chest is performed with IV Contrast, patient injected with 100 ml mL of Isovue 300. FINDINGS: LUNGS: The lungs are stable, there is no concerning parenchymal mass or nodule identified. Calcified nodule in the right lower lobe is present as on prior. There is no pleural effusion or pneumothorax seen. The tracheobronchial tree is patent. MEDIASTINUM: Prevascular node, bilateral calcified hilar nodes, calcified subcarinal nodes are all ag ain noted as well as calcified retrocaval pretracheal node. There is no axillary adenopathy. AORTA: No additional significant abnormality is seen. OTHER: No additional significant abnormality is seen. IMPRESSION: Stable findings, no acute abnormality. Findings are consistent with patient's history of granulomatous disease.
[2020-03-30] MEDS: GABAPENTIN 300 MG CAP PO SCH ×2 (15:43→21:38)
[2020-03-30 17:01] LABS: Glucose,Whole Blood 207 mg/dL (75-99)
[2020-03-30 20:39] LABS: Glucose,Whole Blood 245 mg/dL (75-99)
[2020-03-30] MEDS: traZODone HCL 100 MG TAB PO SCH (20:55)
[2020-03-30] MEDS: ARIPiprazole 5 MG TAB PO SCH (20:55)
[2020-03-30] MEDS: HEPARIN SODIUM,PORCINE 5,000 UNIT/ML 1 ML VIAL SQ SCH (20:55)
[2020-03-30] MEDS: INSULN ASP PRT/INSULIN ASPART 100 UNIT/ML 10 ML VIAL SQ SCH (21:38)
[2020-03-30 23:29] LABS: Hemoglobin A1C 8.5 % (4.0-6.0)
[2020-03-31 04:39] LABS: Basophils # (A) 0.1 k/uL (0-0.2); Basophils % (A) 1 %; Eosinophils # (A) 0.4 k/uL (0-0.7); Eosinophils % (A) 6 %; HCT 36.8 % (39.0-53.0); HGB 11.9 gm/dL (13.0-17.5); Lymphocytes % (A) 17 %; MCH 28.9 pg (25.0-35.0); MCHC 32.4 g/dL (31.0-37.0); MCV 89.1 fL (80.0-100.0); Monocytes # (A) 0.6 k/uL (0-1.0); Monocytes % (A) 10 %; Neutrophils # (A) 3.7 k/uL (1.3-7.7); Neutrophils % (A) 64 %; Platelet Count 194 k/uL (150-450); RBC 4.13 m/uL (4.30-5.90); RDW 13.3 % (11.5-15.5); WBC 5.8 k/uL (3.8-10.6)
[2020-03-31 05:05] LABS: ALT 26 U/L (4-49); AST 23 U/L (17-59); African American GFR (CKD) >90 (>60 ml/min/1.73 sqM); Albumin 3.6 g/dL (3.5-5.0); Alkaline Phosphatase 166 U/L (38-126); Anion Gap 4 mmol/L; Blood Urea Nitrogen 22 mg/dL (9-20); Calcium 9.4 mg/dL (8.4-10.2); Carbon Dioxide 32 mmol/L (22-30); Chloride 102 mmol/L (98-107); Cholesterol 171 mg/dL (<200); Glucose 90 mg/dL (74-99); HDL Cholesterol 43 mg/dL (40-60); LDL Cholesterol,Calculated 96 mg/dL (0-99); Magnesium 1.7 mg/dL (1.6-2.3); Non-African American GFR(CKD) 82 (>60 ml/min/1.73 sqM); Potassium 4.1 mmol/L (3.5-5.1); Sodium 138 mmol/L (137-145); Total Bilirubin 0.7 mg/dL (0.2-1.3); Total Protein 6.5 g/dL (6.3-8.2); Triglycerides 161 mg/dL (<150)
[2020-03-31 06:03] LABS: Glucose,Whole Blood 103 mg/dL (75-99)
[2020-03-31] MEDS: INSULIN ASPART (NovoLOG) 100 UNIT/ML VIAL SQ SCH ×3 (08:39→17:06)
[2020-03-31] MEDS: MORPHINE SULFATE 4 MG/ML SYRINGE IV PRN ×4 (08:51→21:24)
[2020-03-31] MEDS: MAGNESIUM SULFATE-D5W PMX 1 GM in DEXTROSE/WATER 1 100ML.BAG IVPB SCH ×2 (08:51→10:54)
[2020-03-31] MEDS: SODIUM CHLORIDE 0.9% 1,000 ML IV SCH ×2 (08:56→10:55)
[2020-03-31] MEDS ORDERED: ASPIRIN 325 MG TAB PO SCH (09:00)
[2020-03-31] MEDS ORDERED: METOPROLOL SUCCINATE (ER) 25 MG TAB.ER.24H PO SCH (09:00)
[2020-03-31] MEDS ORDERED: DOBUTamine DRIP for NUC MED 500 MG in DEXTROSE/WATER 1 250ML.BAG IV ONE (10:00)
[2020-03-31] MEDS ORDERED: ALPRAZolam 0.25 MG TAB PO PRN (10:06)
[2020-03-31] MEDS ORDERED: NITROGLYCERIN SL TABS 0.4 MG TAB SUBLINGUAL PRN (10:06)
[2020-03-31] MEDS ORDERED: SODIUM CHLORIDE 0.9% 1,000 ML in EMPTY BAG 1 BAG IV ONE (10:06)
[2020-03-31] MEDS ORDERED: ALPRAZolam 0.5 MG TAB PO PRN (10:06)
[2020-03-31] MEDS: ATORVASTATIN 80 MG TAB PO SCH ×2 (10:10→21:23)
[2020-03-31] MEDS: ASPIRIN 81 MG PO SCH ×2 (10:10→10:55)
--- NOTE | 2020-03-31 10:30 | P.PN ---
Subjective Progress Note Date: 03/31/20 This is a pleasant 54-year-old male past medical history significant for diabetes mellitus, hypertension, dyslipidemia, fatty liver disease and pulmonary sarcoidosis. 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 In August 2018 he underwent a cardiac catheterization with Dr. Kate revealing normal coronary arteries. We have been asked to see in consultation for chest pain. Dates for the previous 7 weeks he has been experiencing chest discomfort described as a tight squeezing sensation around his chest. He states he called EMS approximately 10 times in the previous 7 weeks secondary to his chest discomfort. He is here in [place] visiting his mother. Most of his hospitalizations over the previous 7 weeks have been at [facility]. He states most recently there he was diagnosed with probable cardiac sarcoidosis. The patient was seen in consultation by Dr. Nagy over the weekend. His troponins were 0.02, 0.04, 0.05, 0.04. Initially the patient was recommended to undergo a stress test today. This morning it was noted on the monitor that he had a 17 beat run of nonsustained ventricular tachycardia. Patient was seen and reevaluated by Dr. Ontiveros this morning and a decision was made to proceed with cardiac catheterization tomorrow. The risks and benefits were explained in detail and he is willing to proceed. This will be performed by Dr. Ramos. Objective - Vital Signs Vital signs: Vital Signs Temp 98.2 F 03/31/20 08:20 Pulse 88 03/31/20 08:20 Resp 18 03/31/20 08:20 BP 118/73 03/31/20 08:20 Pulse Ox 97 03/31/20 08:20 Intake & Output 03/30/20 03/31/20 03/31/20 18:59 06:59 18:59 Intake Total 480 0 Output Total 1100 1750 Balance -620 -1750 0 Weight 122.5 kg Intake: Oral 480 0 Output: Urine 1100 1750 Other: # Voids 2 - Exam CONSTITUTIONAL: No apparent distress. Obese. HEENT: Head is normocephalic. Pupils are equal, round. Sclerae anicteric. Mucous membranes of the mouth are moist. No JVD. No carotid bruit. CHEST EXAMINATION: Lungs are clear to auscultation. Right anterior wall chest wall tenderness is noted on palpation. HEART EXAMINATION: Regular rate and rhythm. S1, S2 heard. No murmurs, gallops or rub. ABDOMEN: Soft, nontender. Positive bowel sounds. EXTREMITIES: 2+ peripheral pulses, no lower extremity edema and no calf tenderness. NEUROLOGIC EXAMINATION: Patient is awake, alert and oriented x3. - Labs CBC & Chem 7: 03/31/20 03:59 03/31/20 03:59 Labs: Abnormal Lab Results - Last 24 Hours (Table) 03/30/20 03/30/20 03/30/20 Range/Units 12:28 16:45 18:16 RBC (4.30-5.90) m/uL Hgb (13.0-17.5) gm/dL Hct (39.0-53.0) % Carbon Dioxide (22-30) mmol/L BUN (9-20) mg/dL POC Glucose (mg/dL) 256 H 207 H (75-99) mg/dL Hemoglobin A1c 8.5 H (4.0-6.0) % Alkaline Phosphatase (38-126) U/L Triglycerides (<150) mg/dL 03/30/20 03/31/20 03/31/20 Range/Units 20:38 03:59 03:59 RBC 4.13 L (4.30-5.90) m/uL Hgb 11.9 L (13.0-17.5) gm/dL Hct 36.8 L (39.0-53.0) % Carbon Dioxide 32 H (22-30) mmol/L BUN 22 H (9-20) mg/dL POC Glucose (mg/dL) 245 H (75-99) mg/dL Hemoglobin A1c (4.0-6.0) % Alkaline Phosphatase 166 H (38-126) U/L Triglycerides 161 H (<150) mg/dL 03/31/20 Range/Units 05:58 RBC (4.30-5.90) m/uL Hgb (13.0-17.5) gm/dL Hct (39.0-53.0) % Carbon Dioxide (22-30) mmol/L BUN (9-20) mg/dL POC Glucose (mg/dL) 103 H (75-99) mg/dL Hemoglobin A1c (4.0-6.0) % Alkaline Phosphatase (38-126) U/L Triglycerides (<150) mg/dL Assessment and Plan Plan: Assessment and plan #1 symptoms of chest discomfort, EKG did not show any significant change, mild troponin abnormality, possible acute coronary syndrome. #2 run of nonsustained ventricular tachycardia, 17 complexes #3 diabetes #4 hypertension #5 hyperlipidemia #6 pulmonary sarcoidosis #7 no prior documented coronary artery disease. Patient underwent a cardiac catheterization in August 2018 which revealed normal coronary arteries. Plan Patient will be scheduled to undergo cardiac catheterization tomorrow with Dr. Ramos, the risks and the benefits were explained to the patient in detail and he is willing to proceed. DNP note has been reviewed, I agree with a documented findings and plan of care. Patient was seen and examined.
[2020-03-31] MEDS: TAMSULOSIN 0.4 MG CAP.ER.24H PO SCH (10:54)
[2020-03-31] MEDS: HEPARIN SODIUM,PORCINE 5,000 UNIT/ML 1 ML VIAL SQ SCH ×2 (10:54→21:24)
[2020-03-31] MEDS: GABAPENTIN 300 MG CAP PO SCH ×3 (10:54→21:23)
[2020-03-31] MEDS: DULoxetine HCL 30 MG CAPSULE.DR PO SCH (10:54)
[2020-03-31] MEDS: lisinopriL 10 MG TAB PO SCH ×3 (10:54→19:34)
--- NOTE | 2020-03-31 11:51 | P.CNPUL ---
History of Present Illness Consult date: 03/31/20 Reason for consult: dyspnea, chest pain Chief complaint: Thoracoabdominal pain History of present illness: This is a 54-year-old morbidly obese male with prior medical history hypertension hypertensive cardiovascular disease morbid obesity and diabetes mellitus dyslipidemia came into the hospital with thoracoabdominal pain workup for cholecystitis or cholelithiasis has been negative patient is still having intermittent chest pain, patient has been noted to have elevated troponin is being scheduled for cardiac cath and angiogram for tomorrow, patient does have a history of sarcoidosis a computed tomography scan of the chest performed revealed presence of a calcified mediastinal lymph node consistent with pulmona ry sarcoidosis however no significant parenchymal changes has been seen, patient has anterior fascicular block on EKG and some runs of ventricular tachycardia this morning as well and cardiovascular services following, denies any cough or sputum production denies any fever or night sweats or chills, patient has the by ultrasound mild hepatomegaly triglyceride and hemoglobin A1c elevated liver enzy mes are within normal limit however, pancreatic enzyme at the time came and they were elevated now they're coming down thought to be related to uncontrolled diabetes, patient also have history of snoring and apneic events at home and he has shown interest in getting a sleep study as outpatient, patient remains at risk of cardiac sarcoidosis will need a PET scan on outpatient basis Review of Systems All systems: negative Past Medical History Past Medical History: Chest Pain / Angina, Diabetes Mellitus, Hyperlipidemia, Hypertension Additional Past Medical History / Comment(s): Fatty liver disease, Chronic back pain, pulmonary sarcoidosis History of Any Multi-Drug Resistant Organisms: None Reported Past Surgical History: Hernia Repair Past Anesthesia/Blood Transfusion Reactions: No Reported Reaction Past Psychological History: Depression Smoking Status: Never smoker Past Alcohol Use History: None Reported Past Drug Use History: None Reported - Past Family History Mother Family Medical History: Cancer Additional Family Medical History / Comment(s): breast Sister(s) Family Medical History: Cancer Additional Family Medical History / Comment(s): breast Medications and Allergies Home Medications Medication Instructions Recorded Confirmed Type ARIPiprazole [Abilify] 5 mg PO HS 03/30/20 03/30/20 History Atorvastatin [Lipitor] 80 mg PO HS 03/30/20 03/30/20 History DULoxetine HCL [Cymbalta] 90 mg PO DAILY 03/30/20 03/30/20 History Gabapentin [Neurontin] 300 mg PO TID 03/30/20 03/30/20 History Insulin NPH Hum/Reg Insulin Hm 60 units SQ BID 03/30/20 03/30/20 History [Novolin 70-30 Flexpen] Metoprolol Succinate [Toprol XL] 25 mg PO DAILY 03/30/20 03/30/20 History Tamsulosin [Flomax] 0.4 mg PO DAILY 03/30/20 03/30/20 History traZODone HCL 200 mg PO HS 03/30/20 03/30/20 History Allergies Allergy/AdvReac Type Severity Reaction Status Date / Time tramadol AdvReac urine Verified 03/30/20 08:52 retention Physical Exam Vitals: Vital Signs Temp Pulse Resp BP Pulse Ox 03/31/20 08:20 98.2 F 88 18 118/73 97 03/31/20 04:00 97.5 F L 74 16 107/66 95 03/31/20 03:00 94 L 03/31/20 00:00 97.4 F L 79 18 116/72 94 L 03/30/20 20:00 97.9 F 83 18 141/72 97 03/30/20 16:00 98.2 F 75 20 116/74 96 03/30/20 12:00 74 20 115/71 96 Intake and Output 03/30/20 03/31/20 03/31/20 22:59 06:59 14:59 Intake Total 240 0 Output Total 1100 1750 Balance -860 -1750 0 Intake: Oral 240 0 Output: Urine 1100 1750 Other: Weight 122.5 kg - Constitutional General appearance: morbidly obese - EENT Eyes: EOMI, PERRLA Ears: bilateral: normal - Neck Neck: normal ROM Carotids: bilateral: upstroke normal - Respiratory Respiratory: bilateral: CTA - Cardiovascular Rhythm: regular Heart sounds: normal: S1, S2 - Gastrointestinal General gastrointestinal: normal bowel sounds, soft - Integumentary Integumentary: normal turgor - Neurologic Neurologic: CNII-XII intact - Musculoskeletal Musculoskeletal: gait normal, generalized weakness, strength equal bilaterally - Psychiatric Psychiatric: A&O x's 3, appropriate affect, intact judgment & insight Results - Laboratory Findings CBC and BMP: 03/31/20 03:59 03/31/20 03:59 PT/INR, D-dimer PT 10.4 sec (9.0-12.0) 03/30/20 00:09 INR 1.0 (<1.2) 03/30/20 00:09 Abnormal lab findings: Abnormal Labs 03/30/20 03/30/20 03/30/20 00:09 00:09 02:33 RBC Hgb 12.9 L Hct 38.9 L APTT Sodium 134 L Carbon Dioxide BUN 29 H Glucose 251 H POC Glucose (mg/dL) 234 H Hemoglobin A1c Alkaline Phosphatase 200 H Troponin I Triglycerides Lipase 564 H 03/30/20 03/30/20 03/30/20 02:41 06:03 06:25 RBC Hgb Hct APTT Sodium Carbon Dioxide BUN Glucose POC Glucose (mg/dL) 244 H Hemoglobin A1c Alkaline Phosphatase Troponin I 0.043 H* 0.054 H* Triglycerides Lipase 03/30/20 03/30/20 03/30/20 09:30 09:30 12:28 RBC Hgb Hct APTT 30.4 H Sodium Carbon Dioxide BUN Glucose POC Glucose (mg/dL) 256 H Hemoglobin A1c Alkaline Phosphatase Troponin I 0.046 H* Triglycerides Lipase 03/30/20 03/30/20 03/30/20 16:45 18:16 20:38 RBC Hgb Hct APTT Sodium Carbon Dioxide BUN Glucose POC Glucose (mg/dL) 207 H 245 H Hemoglobin A1c 8.5 H Alkaline Phosphatase Troponin I Triglycerides Lipase 03/31/20 03/31/20 03/31/20 03:59 03:59 05:58 RBC 4.13 L Hgb 11.9 L Hct 36.8 L APTT Sodium Carbon Dioxide 32 H BUN 22 H Glucose POC Glucose (mg/dL) 103 H Hemoglobin A1c Alkaline Phosphatase 166 H Troponin I Triglycerides 161 H Lipase - Diagnostic Findings Chest x-ray: report reviewed, image reviewed CT scan - chest: report reviewed, image reviewed (Finding as noted above) Assessment and Plan Assessment: Episodes of chest pain intermittent in nature, workup for coronary artery disease in progress Acute pancreatitis likely due to uncontrolled diabetes slowly improving pancreatic enzyme noted Mediastinal calcified lymphadenopathy Pulmonary sarcoidosis Episode of ventricular tachycardia Left anterior fascicular block/heart block rule out cardiac sarcoidosis Morbid obesity and obstructive sleep apnea Uncontrolled diabetes Hypertension hypertensive cardiovascular disease Plan: Continue gentle rehydration pain control Continue supportive care workup for coronary artery disease in progress Patient will need a PET scan as outpatient to rule out active pulmonary sarcoi dosis and cardiac sarcoidosis Patient will also need a polysomnogram on outpatient basis to evaluate and exclude obstructive sleep apnea Further recommendations pending plan of care as per clinical response of patient As always he appreciated involving care of this patient will follow with you Time with Patient: Greater than 30
[2020-03-31] MEDS: INSULN ASP PRT/INSULIN ASPART 100 UNIT/ML 10 ML VIAL SQ SCH ×3 (11:52→21:25)
[2020-03-31 11:59] LABS: Glucose,Whole Blood 216 mg/dL (75-99)
[2020-03-31] MEDS: PANTOPRAZOLE 40 MG/10 ML VIAL IVP SCH (12:04)
[2020-03-31] MEDS ORDERED: PANTOPRAZOLE 40 MG TABLET PO STA (13:35)
[2020-03-31 16:57] LABS: Glucose,Whole Blood 140 mg/dL (75-99)
[2020-03-31] MEDS: METOPROLOL SUCCINATE (ER) 25 MG TAB.ER.24H PO SCH (17:03)
--- NOTE | 2020-03-31 18:53 | ECHOF ---
Referral Reason:trop elev MEASUREMENTS -------- HEIGHT: 180.3 cm WEIGHT: 122.5 kg BP: 107/66 IVSd: 1.6 cm (0.6 - 1.1) LVIDd: 4.9 cm (3.9 - 5.3) LVPWd: 1.6 cm (0.6 - 1.1) EDV(Teich): 114 ml IVSs: 1.8 cm LVIDs: 4.2 cm LVPWs: 1.7 cm %IVS Thck: 13 % ESV(Teich): 80 ml EF(Teich): 30 % %FS: 14 % SV(Teich): 34 ml RVIDd: 3.8 cm (< 3.3) LVLd A4C: 9.5 cm LVEDV MOD A4C: 171 ml LVLs A4C: 8.8 cm LVESV MOD A4C: 126 ml LVEF MOD A4C: 27 % SV MOD A4C: 46 ml Ao Diam: 3.6 cm (2.0 - 3.7) LA Diam: 3.3 cm (2.7 - 3.8) AV Cusp: 2.5 cm (1.5 - 2.6) EPSS: 2.0 cm MV E Gonzalo: 0.40 m/s MV DecT: 208 ms MV Dec [place]: 1.9 m/s MV A Gonzalo: 0.69 m/s MV E/A Ratio: 0.57 MV PHT: 60 ms MR Vmax: 0.90 m/s MR maxP.27 mmHg TR Vmax: 1.68 m/s TR maxP.30 mmHg RAP: 5.00 mmHg RVSP: 16.30 mmHg MV EF SLOPE: 29.18 mm/s (70 - 150) MV EXCURSION: 11.28 mm (> 18.000) FINDINGS -------- This was a technically difficult study with suboptimal views. The left ventricular size is normal. There is moderate concentric left ventricular hypertrophy. O verall left ventricular systolic function is severely impaired with, an EF between 25 - 30 %. The right ventricle is mild to moderately enlarged. The left atrial size is normal. The right atrial size is normal. 5.0mg of Lumason was utilized for enhancement of images The aortic valve is trileaflet and appears structurally normal. The mitral valve is normal. There is trace mitral regurgitation. The tricuspid valve appears structurally normal. Trace tricuspid regurgitation present. Right ros tricular systolic pressure is normal at < 35 mmHg. There is no pulmonic regurgitation present. The aortic root size is normal. IVC Not well visulized. There is no pericardial effusion. CONCLUSIONS -------- 1. The left ventricular size is normal. 2. There is moderate concentric left ventricular hypertrophy. 3. Overall left ventricular systolic function is severely impaired with, an EF between 25 - 30 %. 4. The right ventricle is mild to moderately enlarged. 5. There is trace mitral regurgitation. 6. Trace tricuspid regurgitation present. 7. There is no pericardial effusion. SUBSTATION INSPECTOR: Lois Pelaez RDCS
[2020-03-31 21:04] LABS: Glucose,Whole Blood 95 mg/dL (75-99)
[2020-03-31] MEDS: traZODone HCL 100 MG TAB PO SCH (21:23)
[2020-03-31] MEDS: ARIPiprazole 5 MG TAB PO SCH (21:23)
--- NOTE | 2020-03-31 22:37 | PN ---
PROGRESS NOTE This patient is a 54-year-old white male with atypical chest pain. He is going to get a heart catheterization tomorrow morning. CARDIOVASCULAR: S1, S2. LUNGS: Clear. GI: Soft. HEMATOLOGY: Negative Homans. PSYCH: Fair mood and affect. He is on heparin subcutaneously at this time. He is going to get a cardiac catheterization in the morning prior to discharge. Continue current treatments. Hemoglobin is 11.9, sugars in the mid 100s. Lipase is down, 226. Wait for cardiac catheterization tomorrow prior to discharge. Pancreatitis resolved. MMODL / IJN: [id number] /
[2020-04-01] MEDS ORDERED: ASPIRIN 325 MG TAB PO ONE (06:00)
[2020-04-01] MEDS ORDERED: ATORVASTATIN 80 MG TAB PO ONE (06:00)
[2020-04-01 06:18] LABS: Glucose,Whole Blood 147 mg/dL (75-99)
[2020-04-01] MEDS: MORPHINE SULFATE 4 MG/ML SYRINGE IV PRN ×2 (06:37→12:15)
[2020-04-01] MEDS ORDERED: fentaNYL (PF) 50 MCG/ML 2 ML AMP ONE (07:21)
[2020-04-01] MEDS ORDERED: LIDOCAINE 1% INJ 10MG/ML (20 ML MDV) ONE (07:21)
[2020-04-01] MEDS ORDERED: IV FLUID CONTINUATION 1,000 ML IV ONE (07:35)
[2020-04-01] MEDS ORDERED: LIDOCAINE 1% INJ 10MG/ML (20 ML MDV) SQ ONE (07:45)
[2020-04-01] MEDS ORDERED: MIDAZOLAM 2 MG/2 ML VIAL IV ONE (07:45)
[2020-04-01] MEDS ORDERED: fentaNYL (PF) 50 MCG/ML 2 ML AMP IV ONE (07:45)
[2020-04-01] MEDS ORDERED: SODIUM CHLORIDE 0.9% 1,000 ML IV SCH (08:00)
[2020-04-01] MEDS ORDERED: RX INFO: IV CONTRAST WAS GIVEN 1 EACH MISC MISCELLANE PRN (08:00)
[2020-04-01] MEDS ORDERED: IOPAMIDOL-370 125ML BTL INJ ONE (08:00)
--- NOTE | 2020-04-01 08:34 | P.CONS ---
History of Present Illness - Reason for Consult Consult date: 03/31/20 Elevated lipase Requesting physician: Edwin Chicas - Chief Complaint Chest and abdominal pain - History of Present Illness 54-year-old male with a medical history significant for pulmonary sarcoidosis, dyslipidemia, hypertension and diabetes mellitus who presented to the hospital with complaints of chest and abdominal pain. The patient reports chest discomfort described as tightness and squeezing in nature. He reports that this goes into his upper abdomen and radiates to his back. No nausea vomiting reported. The patient has been seen by the cardiology service and is scheduled for a cardiac catheterization tomorrow. The patient was noted to have elevation in his lipase on presentation at 564, currently 226. Denies any history of pancreatitis. Denies any current heavy alcohol abuse. Ultrasound of the liver performed in showing an enlarged liver with no dilated ducts and no gallstones. Other laboratory evaluation significant for triglycerides 161, WBC 5.8, hemoglobin 11.9, total bilirubin 0.7, alkaline phosphatase 166, AST 23 and ALT 26. Review of Systems REVIEW OF SYSTEMS: CONSTITUTIONAL: Denies any fevers, chills, weight change or fatigue. CARDIOVASCULAR: Denies any palpitations, high or low blood pressure but does report chest pain RESPIRATORY: Denies any shortness of breath, hemoptysis or cough. GENITOURINARY: No dysuria or hematuria. MUSCULOSKELETAL: No weakness reported. SKIN: Denies any new rashes or lesions, jaundice or pallor. PSYCHIATRIC: Denies any depression or anxiety. NEUROLOGY: Denies headache, denies any new focal deficits. EARS/NOSE/THROAT: No recent hearing change, congestion, nasal discharge or sore throat. EYES: No pain in eyes, discharge or change in vision. GASTROINTESTINAL: As per HPI. Past Medical History Past Medical History: Chest Pain / Angina, Diabetes Mellitus, Hyperlipidemia, Hypertension Additional Past Medical History / Comment(s): Fatty liver disease, Chronic back pain, pulmonary sarcoidosis History of Any Multi-Drug Resistant Organisms: None Reported Past Surgical History: Hernia Repair Past Anesthesia/Blood Transfusion Reactions: No Reported Reaction Past Psychological History: Depression Smoking Status: Never smoker Past Alcohol Use History: None Reported Past Drug Use History: None Reported - Past Family History Mother Family Medical History: Cancer Additional Family Medical History / Comment(s): breast Sister(s) Family Medical History: Cancer Additional Family Medical History / Comment(s): breast Medications and Allergies Home Medications Medication Instructions Recorded Confirmed Type ARIPiprazole [Abilify] 5 mg PO HS 03/30/20 03/30/20 History Atorvastatin [Lipitor] 80 mg PO HS 03/30/20 03/30/20 History DULoxetine HCL [Cymbalta] 90 mg PO DAILY 03/30/20 03/30/20 History Gabapentin [Neurontin] 300 mg PO TID 03/30/20 03/30/20 History Insulin NPH Hum/Reg Insulin Hm 60 units SQ BID 03/30/20 03/30/20 History [Novolin 70-30 Flexpen] Metoprolol Succinate [Toprol XL] 25 mg PO DAILY 03/30/20 03/30/20 History Tamsulosin [Flomax] 0.4 mg PO DAILY 03/30/20 03/30/20 History traZODone HCL 200 mg PO HS 03/30/20 03/30/20 History Allergies Allergy/AdvReac Type Severity Reaction Status Date / Time tramadol AdvReac urine Verified 03/30/20 08:52 retention Physical Exam Vitals: Vital Signs Temp Pulse Resp BP Pulse Ox 03/31/20 08:20 98.2 F 88 18 118/73 97 03/31/20 04:00 97.5 F L 74 16 107/66 95 03/31/20 03:00 94 L 03/31/20 00:00 97.4 F L 79 18 116/72 94 L 03/30/20 20:00 97.9 F 83 18 141/72 97 03/30/20 16:00 98.2 F 75 20 116/74 96 Intake and Output 03/30/20 03/31/20 03/31/20 22:59 06:59 14:59 Intake Total 240 0 Output Total 1100 1750 Balance -860 -1750 0 Intake: Oral 240 0 Output: Urine 1100 1750 Other: Weight 122.5 kg On physical examination, patient appears comfortable in no apparent distress. HEAD: Normocephalic, atraumatic. EYES: No scleral icterus. No conjunctival injection. MOUTH: No lesions, tongue midline. NECK: Trachea midline, no gross abnormalities. CHEST: Clear to auscultation with no wheezing or rhonchi appreciated. HEART: Regular rate and rhythm. ABDOMEN: Soft, obese, mildly tender to palpation. Bowel sounds are positive. No organomegaly. No guarding or rigidity. EXTREMITIES: No pedal edema. SKIN: No rashes, no jaundice. NEUROLOGIC: Alert and oriented x3. No focal deficits. Results CBC & Chem 7: 03/31/20 03:59 03/31/20 03:59 Labs: Abnormal Lab Results - Last 24 Hours (Table) 03/30/20 03/30/20 03/30/20 Range/Units 16:45 18:16 20:38 RBC (4.30-5.90) m/uL Hgb (13.0-17.5) gm/dL Hct (39.0-53.0) % Carbon Dioxide (22-30) mmol/L BUN (9-20) mg/dL POC Glucose (mg/dL) 207 H 245 H (75-99) mg/dL Hemoglobin A1c 8.5 H (4.0-6.0) % Alkaline Phosphatase (38-126) U/L Triglycerides (<150) mg/dL 03/31/20 03/31/20 03/31/20 Range/Units 03:59 03:59 05:58 RBC 4.13 L (4.30-5.90) m/uL Hgb 11.9 L (13.0-17.5) gm/dL Hct 36.8 L (39.0-53.0) % Carbon Dioxide 32 H (22-30) mmol/L BUN 22 H (9-20) mg/dL POC Glucose (mg/dL) 103 H (75-99) mg/dL Hemoglobin A1c (4.0-6.0) % Alkaline Phosphatase 166 H (38-126) U/L Triglycerides 161 H (<150) mg/dL 03/31/20 Range/Units 11:57 RBC (4.30-5.90) m/uL Hgb (13.0-17.5) gm/dL Hct (39.0-53.0) % Carbon Dioxide (22-30) mmol/L BUN (9-20) mg/dL POC Glucose (mg/dL) 216 H (75-99) mg/dL Hemoglobin A1c (4.0-6.0) % Alkaline Phosphatase (38-126) U/L Triglycerides (<150) mg/dL US - abdomen: report reviewed (Ultrasound of the abdomen with findings of hepatomegaly with normal CBD at 0.6 cm without dilated ducts or gallstones noted) Assessment and Plan (1) Elevated lipase Narrative/Plan: 54-year-old male with multiple medical comorbidities presenting with chest and abdominal pain. Patient found to have elevation in his lipase on presentation at 564, unclear if this is a late presentation of acute pancreatitis, secondary to acute kidney injury as lipases renally excreted or other etiology. Scheduled for cardiac catheterization tomorrow. Current Visit: Yes Status: Acute Code(s): R74.8 - ABNORMAL LEVELS OF OTHER SERUM ENZYMES SNOMED Code(s): 669612099 (2) Hepatomegaly Current Visit: Yes Status: Acute Code(s): R16.0 - HEPATOMEGALY, NOT ELSEWH ERE CLASSIFIED SNOMED Code(s): 33095283 Plan: Continue supportive care Clear liquid diet, advance as tolerated Continue IV fluid hydration Continue pain control Continue management by the cardiology service and primary team Ultrasound of the abdomen reviewed Triglyceride level within normal limits No plan for endoscopic evaluation at this time Thank you for this patient in the care of the patient
[2020-04-01] MEDS ORDERED: PANTOPRAZOLE 40 MG TABLET PO SCH (09:00)
--- NOTE | 2020-04-01 09:36 | CC ---
CARDIAC CATHETERIZATION REPORT INDICATION: Unstable angina. PROCEDURE NOTE: After obtaining informed consent, left heart catheterization and coronary angiogram were performed via the right femoral artery using standard Aileen catheters. Patient tolerated the procedure well without any obvious immediate complications. A femoral angiogram was performed and Angio-Seal was deployed for hemostasis. Patient received moderate conscious sedation. Total sedation time was 13 minutes. FINDINGS: HEMODYNAMICS: Left ventricular end-diastolic pressure is 18 mm. There is no significant gradient across the aortic valve. LEFT VENTRICULOGRAM: Left ventriculogram was not performed. ANGIOGRAPHIC DATA: LEFT MAIN CORONARY ARTERY: Left main coronary artery is a normal-sized vessel and is free of stenosis. Divides into the left anterior descending coronary artery and circumflex coronary artery. LAD and its branches, circumflex coronary artery and its branches are free of significant stenosis. Right coronary artery is a large dominant vessel and is free of significant disease. CONCLUSION: 1. Normal coronary arteries. 2. Elevated left ventricular end-diastolic pressure. PLAN: Patient's chest discomfort is not related to coronary artery disease. His management is going to be in the form of risk factor modification. MMODL / IJN: [id number] /
--- NOTE | 2020-04-01 09:38 | P.PN ---
Subjective Progress Note Date: 04/01/20 Principal diagnosis: Cardiomyopathy with ejection fraction of 30% ischemic versus nonischemic Episodes of chest pain intermittent in nature, workup for coronary artery disease in progress Acute pancreatitis likely due to uncontrolled diabetes slowly improving pancreatic enzyme noted Mediastinal calcified lymphadenopathy Pulmonary sarcoidosis Episode of ventricular tachycardia Left anterior fascicular block/heart block rule out cardiac sarcoidosis Morbid obesity and obstructive sleep apnea Uncontrolled diabetes Hypertension hypertensive cardiovascular disease Hepatomegaly 04/01/2020, patient seen eval examined during the rounds labs reviewed medications and care plan discussed patient is for cardiac cath angiogram, findings on echocardiogram reviewed LVH along with cardiomyopathy ejection fraction of 30% noted, nonspecific intermittent chest pain and abdominal pain, severity has improved however, shortness breath stable, patient has been evaluated by GI services notes and recommendation noted or appreciated, This is a 54-year-old morbidly obese male with prior medical history hypertension hypertensive cardiovascular disease morbid obesity and diabetes mellitus dyslipidemia came into the hospital with thoracoabdominal pain workup for cholecystitis or cholelithiasis has been negative patient is still having intermittent chest pain, patient has been noted to have elevated troponin is being scheduled for cardiac cath and angiogram for tomorrow, patient does have a history of sarcoidosis a computed tomography scan of the chest performed revealed presence of a calcified mediastinal lymph node consistent with pulmonary sarcoidosis however no significant parenchymal changes has been seen, patient has anterior fascicular block on EKG and some runs of ventricular tachycardia this morning as well and cardiovascular services following, denies any cough or sputum production denies any fever or night sweats or chills, patient has the by ultrasound mild hepatomegaly triglyceride and hemoglobin A1c elevated liver enzymes are within normal limit however, pancreatic enzyme at the time came and they were elevated now they're coming down thought to be related to uncontrolled diabetes, patient also have history of snoring and apneic events at home and he has shown interest in getting a sleep study as outpatient, patient remains at risk of cardiac sarcoidosis will need a PET scan on outpatient basis Objective - Vital Signs Vital signs: Vital Signs Temp 98.0 F 04/01/20 04:00 Pulse 79 04/01/20 04:00 Resp 18 04/01/20 04:00 BP 125/79 04/01/20 04:00 Pulse Ox 95 04/01/20 04:00 Intake & Output 03/31/20 04/01/20 04/01/20 18:59 06:59 18:59 Intake Total 1165 100 Output Total 900 Balance 1165 -900 100 Weight 129 kg Intake: IV 100 Intake, IV Titration 800 Amount Magnesium Sulfate-D5w Pmx 200 1 gm In Dextrose/Water 1 100ml.bag @ 100 mls/hr IVPB Q1H [facility] Rx#: [id number] Sodium Chloride 0.9% 1, 600 000 ml @ 100 mls/hr IV . Q10H [facility] Rx#:[id number] Oral 365 Output: Urine 900 Other: Voiding Method Toilet # Voids 3 3 - Exam - Constitutional General appearance: morbidly obese - EENT Eyes: EOMI, PERRLA Ears: bilateral: normal - Neck Neck: normal ROM Carotids: bilateral: upstroke normal - Respiratory Respiratory: bilateral: CTA - Cardiovascular Rhythm: regular Heart sounds: normal: S1, S2 - Gastrointestinal General gastrointestinal: normal bowel sounds, soft - Integumentary Integumentary: normal turgor - Neurologic Neurologic: CNII-XII intact - Musculoskeletal Musculoskeletal: gait normal, generalized weakness, strength equal bilaterally - Psychiatric Psychiatric: A&O x's 3, appropriate affect, intact judgment & insight - Labs CBC & Chem 7: 03/31/20 03:59 03/31/20 03:59 Labs: Abnormal Lab Results - Last 24 Hours (Table) 03/31/20 03/31/20 04/01/20 Range/Units 11:57 16:55 06:16 POC Glucose (mg/dL) 216 H 140 H 147 H (75-99) mg/dL Assessment and Plan Assessment: Acute on chronic systolic heart failure ejection fraction 25-30% Episodes of chest pain intermittent in nature, workup for coronary artery disease in progress Acute pancreatitis likely due to uncontrolled diabetes slowly improving pancreatic enzyme noted Mediastinal calcified lymphadenopathy Pulmonary sarcoidosis Episode of ventricular tachycardia Left anterior fascicular block/heart block rule out cardiac sarcoidosis Hepatomegaly likely related to combination of heart failure and fatty liver versus sarcoidosis Morbid obesity and obstructive sleep apnea Uncontrolled diabetes Hypertension hypertensive cardiovascular disease Plan: Continue pain control Continue supportive care workup for coronary artery disease in progress Patient will need a PET scan as outpatient to rule out active pulmonary sarcoid osis and cardiac sarcoidosis Patient will also need a polysomnogram on outpatient basis to evaluate and exclude obstructive sleep apnea Further recommendations pending plan of care as per clinical response of patient As always he appreciated involving care of this patient will follow with you Time with Patient: Greater than 30
[2020-04-01 11:15] LABS: Basophils % (A) 1 %; Eosinophils # (A) 0.3 k/uL (0-0.7); Eosinophils % (A) 6 %; HCT 35.6 % (39.0-53.0); HGB 11.9 gm/dL (13.0-17.5); Lymphocytes # (A) 0.6 k/uL (1.0-4.8); Lymphocytes % (A) 15 %; MCH 29.8 pg (25.0-35.0); MCHC 33.4 g/dL (31.0-37.0); MCV 89.1 fL (80.0-100.0); Mean Platelet Volume 7.2; Monocytes # (A) 0.3 k/uL (0-1.0); Monocytes % (A) 8 %; Neutrophils # (A) 2.9 k/uL (1.3-7.7); Neutrophils % (A) 68 %; Platelet Count 162 k/uL (150-450); RBC 3.99 m/uL (4.30-5.90); RDW 12.6 % (11.5-15.5); WBC 4.3 k/uL (3.8-10.6)
[2020-04-01 11:56] LABS: Glucose,Whole Blood 138 mg/dL (75-99)
[2020-04-01] MEDS: INSULIN ASPART (NovoLOG) 100 UNIT/ML VIAL SQ SCH ×3 (11:57→12:10)
[2020-04-01] MEDS: SODIUM CHLORIDE 0.9% 1,000 ML IV SCH (11:58)
[2020-04-01] MEDS: GABAPENTIN 300 MG CAP PO SCH ×2 (11:59→12:07)
[2020-04-01] MEDS: HEPARIN SODIUM,PORCINE 5,000 UNIT/ML 1 ML VIAL SQ SCH (11:59)
[2020-04-01] MEDS: DULoxetine HCL 30 MG CAPSULE.DR PO SCH (12:08)
[2020-04-01] MEDS: lisinopriL 10 MG TAB PO SCH (12:08)
[2020-04-01] MEDS: METOPROLOL SUCCINATE (ER) 25 MG TAB.ER.24H PO SCH (12:08)
[2020-04-01] MEDS: TAMSULOSIN 0.4 MG CAP.ER.24H PO SCH (12:08)
--- NOTE | 2020-04-01 12:39 | P.PN ---
Subjective Progress Note Date: 04/01/20 Principal diagnosis: Elevated lipase Patient seen and examined at the bedside. Patient had his cardiac cath this morning and is still very sleepy. He denies any epigastric pain or abdominal pain. Denies any nausea vomiting or diarrhea. Lipase is normal. Objective - Vital Signs Vital signs: Vital Signs Temp 98.0 F 04/01/20 04:00 Pulse 80 04/01/20 09:45 Resp 14 04/01/20 09:45 BP 141/80 04/01/20 09:45 Pulse Ox 95 04/01/20 08:45 Intake & Output 03/31/20 04/01/20 04/01/20 18:59 06:59 18:59 Intake Total 1165 1000 Output Total 900 Balance 1165 -900 1000 Weight 129 kg Intake: IV 100 Intake, IV Titration 800 900 Amount Magnesium Sulfate-D5w Pmx 200 1 gm In Dextrose/Water 1 100ml.bag @ 100 mls/hr IVPB Q1H [facility] Rx#: [id number] Sodium Chloride 0.9% 1, 600 000 ml @ 100 mls/hr IV . Q10H [facility] Rx#:[id number] Sodium Chloride 0.9% 1, 900 000 ml @ 75 mls/hr IV . [id number] [facility] Rx#:[id number] Oral 365 Output: Urine 900 Other: Voiding Method Toilet # Voids 3 3 - Exam General appearance: The patient is alert, oriented, in no acute distress. HET: Head is normocephalic and atraumatic. Conjunctiva pink. Sclera anicteric. Neck: Supple without lymphadenopathy. Trachea midline. Abdomen: Soft, nontender, nondistended with bowel sounds. Extremities: Normal skin color and turgor. Neurological: No focal deficits. Alert and 3. - Labs CBC & Chem 7: 04/01/20 10:44 03/31/20 03:59 Labs: Abnormal Lab Results - Last 24 Hours (Table) 03/31/20 04/01/20 04/01/20 Range/Units 16:55 06:16 10:44 RBC 3.99 L (4.30-5.90) m/uL Hgb 11.9 L (13.0-17.5) gm/dL Hct 35.6 L (39.0-53.0) % Lymphocytes # 0.6 L (1.0-4.8) k/uL POC Glucose (mg/dL) 140 H 147 H (75-99) mg/dL 04/01/20 Range/Units 11:48 RBC (4.30-5.90) m/uL Hgb (13.0-17.5) gm/dL Hct (39.0-53.0) % Lymphocytes # (1.0-4.8) k/uL POC Glucose (mg/dL) 138 H (75-99) mg/dL Assessment and Plan Assessment: (1) Elevated lipase Narrative/Plan: 54-year-old male with multiple medical comorbidities presenting with chest and abdominal pain. Patient found to have elevation in his lipase on presentation at 564, unclear if this is a late presentation of acute pancreatitis, secondary to acute kidney injury as lipases renally excreted or other etiology. He underwent a cardiac cath this morning, without any evidence of blockage. Current Visit: Yes Status: Acute Code(s): R74.8 - ABNORMAL LEVELS OF OTHER SERUM ENZYMES SNOMED Code(s): 031386235 (2) Hepatomegaly Current Visit: Yes Status: Acute Code(s): R16.0 - HEPATOMEGALY, NOT ELSEWHERE CLASSIFIED SNOMED Code(s): 80889795 Plan: Continue supportive care Clear liquid diet, advance as tolerated Continue IV fluid hydration Continue pain control Continue management by the cardiology service and primary team Ultrasound of the abdomen reviewed Triglyceride level within normal limits No plan for endoscopic evaluation at this time We will sign off at this time, patient is cleared for discharge from a gastroenterology standpoint. The impression and plan of care has been dictated as directed. Dr. Olivier I performed a history and examination of this patient, discussed the same with the dictator. I agree with the dictator's note ,documented as a scribe. Any additional findings or plans will be noted.
[2020-04-01 12:44] VITALS: PULSE 72
[2020-04-01 12:49] VITALS: RESP 16
[2020-04-01 16:42] VITALS: BP 126/69; TEMP 97.8
[2020-04-01 16:49] LABS: Glucose,Whole Blood 235 mg/dL (75-99)
[2020-04-02 11:19] LABS: IgG Subclass 3 48.9 mg/dL (11.0-85.0); IgG Subclass 4 51.2 mg/dL (3.0-175.0)
== END 2020-04-01 17:58 | disposition home or self-care (01) | DRG 286 ==
LOC: SUPCPDRO 23:50 → EC 23:50 → 3NCARDOBS 03-30 01:22 → 3SCARD 03-30 05:40 → OBSVTOIN 03-31 13:18
PROVIDERS: ADMIT Family Medicine; ATTEND Family Medicine
PROC: 4A023N7 Measurement of Cardiac Sampling and Pressure, Left Heart, Percutaneous Approach (ICD-10-PCS; principal; 2020-04-01 07:30)
PROC: B2111ZZ Fluoroscopy of Multiple Coronary Arteries using Low Osmolar Contrast (ICD-10-PCS; principal; 2020-04-01 07:30)
DX: R07.89 Other chest pain (principal); K85.90 Acute pancreatitis without necrosis or infection, unspecified; I50.23 Acute on chronic systolic (congestive) heart failure; I20.0 Unstable angina; I47.2 Ventricular tachycardia; E78.5 Hyperlipidemia, unspecified; I11.0 Hypertensive heart disease with heart failure; D86.0 Sarcoidosis of lung; F32.9 Major depressive disorder, single episode, unspecified; G89.29 Other chronic pain; M54.9 Dorsalgia, unspecified; K76.0 Fatty (change of) liver, not elsewhere classified; D86.85 Sarcoid myocarditis; I44.4 Left anterior fascicular block; R79.89 Other specified abnormal findings of blood chemistry; E66.01 Morbid (severe) obesity due to excess calories; G47.33 Obstructive sleep apnea (adult) (pediatric); R16.0 Hepatomegaly, not elsewhere classified; E11.9 Type 2 diabetes mellitus without complications; R59.1 Generalized enlarged lymph nodes; Z68.37 Body mass index [BMI] 37.0-37.9, adult; Z79.899 Other long term (current) drug therapy; Z79.4 Long term (current) use of insulin; Z88.5 Allergy status to narcotic agent; Z80.3 Family history of malignant neoplasm of breast
CPT/HCPCS: 36415; 71046; 71260; 76705; 80053; 80061; 82787; 83036; 83690; 83735; 83880; 84484; 85025; 85379; 85610; 85730; 86038; 93005; 93306; 93458; 96374; 99285